=== PATIENT | female | born 1975 | race Caucasian/White ===

== ENCOUNTER → 2017-12-25 10:22 | Outpatient (CLI) | payer BC, SELFPAY ==
[2017-12-26 10:39] LABS: HIV - WCH Non-Reactive (Nonreactive)
[2017-12-28 07:07] LABS: Hep B Surface Antibodies Non Reactive (.); Hep C Antibodies <0.1 s/co ratio (0.0-0.9)
== END ==
LOC: LAB 10:23
PROVIDERS: Family Provider Family Medicine; PCP Family Medicine; Visit Provider Physician Assistant Surgical
DX: S41.152A Open bite of left upper arm, initial encounter (principal)
CPT/HCPCS: 36415; 86703; 86706; 86803

== ENCOUNTER → 2018-02-05 12:03 | Outpatient (CLI) | payer OTHER, BC, SELFPAY ==
[2018-02-05 14:28] LABS: Alanine Aminotransfer ALT/SGPT 29 U/L (13-56)
[2018-02-06 10:57] LABS: HIV - WCH Non-Reactive (Nonreactive)
[2018-02-06 11:40] LABS: Hep C Antibodies <0.1 s/co ratio (0.0-0.9)
== END ==
PROVIDERS: Family Provider Family Medicine; PCP Family Medicine; Visit Provider Physician Assistant Surgical
DX: T14.8XXA Other injury of unspecified body region, initial encounter (principal); W50.3XXA Accidental bite by another person, initial encounter; Y93.9 Activity, unspecified; Y92.9 Unspecified place or not applicable; Y99.0 Civilian activity done for income or pay
CPT/HCPCS: 36415; 84460; 86703; 86803

== ENCOUNTER 2019-10-15 13:36 | Emergency (ER) | payer SELFPAY ==
[2019-10-15 13:39] VITALS: BP 151/92; PULSE 125; RESP 20; TEMP 36.2; O2SAT 97; BMI 56.8
--- NOTE | 2019-10-15 13:53 | ED.DCSUM_ITS ---
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 She began Tamiflu on Sunday and called her doctor with nausea on Sunday and was given some Zofran. When she woke today she had a right lower quadrant abdominal pain. Nonradiating. Worse with movement and touch. She had 2 bowel movements which were normal. She notes normal urination. She has been drinking water but not eating because of the nausea. No reported fevers. She states her only surgical history is a tonsillectomy. Past Medical History - Allergies and Home Meds Allergies/Adverse Reactions: Allergies aspirin Allergy (Severe, Verified 10/15/19 13:37) Unknown Primary Care Physician: Luca Flores MD [Primary Care Provider] - 1 Day for another exam Smoking Status: Never smoker Review of Systems General: Denies: Chills, Fever, Sweats Eyes: Denies: Visual changes - bilaterally, Diplopia ENT: Denies: Rhinorrhea, Sore throat Cardiovascular: Denies: Chest pain, Palpitations Respiratory: Denies: Dyspnea, Cough, Dyspnea on exertion Gastrointestinal: Reports: Abdominal pain, Nausea. Denies: Vomiting, Diarrhea, Melena, Hematochezia Genitourinary: Denies: Dysuria, Hematuria, Frequency Musculoskeletal: Denies: Back pain, Extremity Pain Skin: Denies: Rash, Wounds Neurological: Denies: Headache, Weakness, Numbness Physical Exam Vital Signs/Narrative: Vital Signs Temp Pulse Resp BP Pulse Ox 10/15/19 13:39 97.1 F L 125 H 20 H 151/92 H 97 Inital Vital Signs reviewed: Yes General: Well nourished, Well developed, No Acute Distress Head: Normocephalic, Atraumatic Eyes: Perrl, EOMI ENT: Moist mucous membranes, No rhinorrhea Neck: Supple, Nontender Cardiovascular: Regular rate, Regular rhythm, No murmurs Respiratory: No distress, CTA bilaterally, Chest nontender Abdomen: Soft, Nondistended, Normal bowel sounds, Tender, - - Patient does report tenderness however due to body habitus I do not feel that I can perform an adequate abdominal examination. Back: Nontender, Normal Inspection Extremities: Nontender, No edema Skin: Normal color, No rash Neurological: Alert, Oriented x3, Cranial nerves II-XII grossly intact, Normal Strength, Normal Sensation Psychological: Normal affect, Normal Mood Diagnostic/Tx/Re-eval - Medical Decision Making The patient's white count is 6.9. Urinalysis does have 2+ bacteria but no significant white or red cells. Negative nitrates. CT the abdomen and pelvis were obtained and this was negative for appendicitis. No obvious stones were seen. I do not have an etiology for the patient's pain on her right side. She plans on stopping the Tamiflu. I will write for Zofran. I have asked that if she continues to have this abdominal pain past the next 24 hours she should have a repeat examination either by us or her primary care physician. She can always return earlier if worsening. She is comfortable with this plan. ED Disposition - Plan for ED Patient: Disposition: Home or Assisted Living Diagnosis: Abdominal pain Instructions: ED Abdominal Pain Unkn Cause Fem Prescriptions: Ondansetron [Zofran Odt] 4 mg PO Q6H PRN PRN #20 tab PRN Reason: Nausea Transmission Status: Pending to [id number] Referrals: Luca Flores MD [Primary Care Provider] - 1 Day for another exam
--- NOTE | 2019-10-15 13:53 | CT_ITS ---
STUDY: CT ABDOMEN AND PELVIS WITH CONTRAST REASON FOR EXAM: Female, 44 years old. Abdomen pain RLQ, nausea, vomiting, hx asthma, kidney stones, hypertension. RADIATION DOSAGE (If Supplied By Facility): CTDIvol = ( 35.60 ) mGy, DLP = ( 4008.85 ) mGycm TECHNIQUE: Transaxial images were obtained from the dome of the diaphragm to the symphysis pubis without oral contrast. IV 100mL Isovue-300 was administered. Sagittal and coronal images were reconstructed. Individualized dose optimization techniques were used for this CT. COMPARISON: Comparison is made with prior study dated June 22, 2010. FINDINGS: Patchy bibasilar infiltrates more prominent on the right side. The visualized portions of the heart are within normal limits. Normal liver. Stable 5 mm focal calcification is once again seen adjacent to the medial aspect of the right lobe of the liver. There are multiple gallstones. Normal spleen. Normal pancreas. There is a small, circumscribed, smooth, low attenuation right adrenal mass, consistent with an adrenal adenoma. This measures 4.1 cm x 3.7 cm. Normal left adrenal gland. Small bilateral parapelvic cysts.. There is a retroaortic left renal vein. There is a small hiatal hernia. Normal small intestine. Normal colon. The appendix is visualized and appears normal. Normal abdominal aorta. Normal inferior vena cava. There is borderline retroperitoneal lymphadenopathy with enlarged nodes no greater than 10mm in the short axis diameter. Normal urinary bladder. There is a 6.7 cm x 8.5 cm x 7.1 cm inhomogeneous mass overlying the fundal portion of the uterus. This may represent a large fibroid. Correlation with ultrasound of the pelvis is recommended for further evaluation. There is a small umbilical hernia containing fat. There are degenerative changes of the visualized lumbar spine. CT/Abdomen/Pelvis W IV Cont ONLY IMPRESSION: Patchy bibasilar infiltrates worse on the left side. Gallstones. 6.7 cm x 8.57 x 7.1 cm inhomogeneous mass overlying the fundal portion of the uterus. This may represent uterine fibroid. Correlation with a pelvic sonogram is recommended. 4.1 cm x 3.7 cm hypodense nodule in the right adrenal gland suggestive of an adenoma. Electronically Signed: Nathan Manriquez, at 15:50 EDT , Service support ,
[2019-10-15 14:23] LABS: Absolute Lymphocyte Count 1.06 X10^3/uL (0.83-4.51); Absolute Neutrophil Count 5.4 X10^3/uL (2.0-7.7); Hematocrit 40.1 % (37-47); Hemoglobin 12.6 g/dL (12.0-15.0); Lymphocyte # 1.06 X10^3/ul (4.0); Lymphocyte % 15.4 % (19-41); Mean Corp Hgb Conc 31.4 g/dL (32-36); Mean Corpuscular Hgb 28.6 pg (27.0-32.0); Mean Corpuscular Volume 90.9 fL (81-99); Monocyte# 0.45 X10^3/uL; Monocyte% 6.5 % (0-10); NRBC Flagged by Analyzer 0 % (0-5); Neutrophil # 5.35 X10^3/uL (2.7-7.7); Neutrophil % 77.8 % (47-70); Platelet Count 168 K/mm3 (150-450); RBC Distribution Width CV 14.5 % (11.6-14.6); RBC Distribution Width SD 48.7 fl (35.1-43.9); Red Blood Count 4.41 M/mm3 (4.2-5.4); White Blood Count 6.9 K/mm3 (4.4-11.0)
[2019-10-15 14:37] LABS: ALB/GLOB Ratio 0.8 RATIO (0.9-2.4); AST(SGOT) 82 U/L (15-37); Alanine Aminotransfer ALT/SGPT 88 U/L (13-56); Albumin, Serum 3.3 g/dL (3.2-5.0); Alkaline Phosphatase 70 U/L (45-117); Anion Gap 10 (5-15); BUN 9 mg/dL (7-18); BUN/Creat Ratio 12.3 RATIO (10-20); Chloride 107 mmol/L (98-107); Creatinine, Serum 0.73 mg/dL (0.55-1.02); EST Glomerular Filtration Rate 92 mL/min (>60); Est Glom Filt Rate - Afr Amer 111 mL/min (>60); Estimated Creatinine Clearance 99.21 ml/min; Globulin 4.2 g/dL (2.2-4.2); Glucose 98 mg/dL (74-106); Lipase 73 U/L (73-393); Potassium 4.1 mmol/L (3.5-5.1); Protein, Total 7.5 g/dL (6.4-8.2); Sodium Level 142 mmol/L (136-145)
[2019-10-15] MEDS: Ondansetron 4 MG/2 ML Vial IV (14:41)
[2019-10-15 15:12] LABS: Mucous, Urine 0 SEEN /hpf (<or=2+); Red Blood Cells-Urine 0 SEEN /hpf (0-5); White Blood Cells 0 SEEN /hpf (0-5)
[2019-10-15 15:14] LABS: Color, Urine Yellow (Yellow); Glucose, Dipstick Normal (Normal); Ketone-Dipstick 50 mg/dl (Negative); Leukocyte Esterase-Dipstick 25 /ul (Negative); Nitrite-Dipstick Negative (Negative); Occult Blood-Urine Negative /ul (Negative); Protein-Dipstick 15 mg/dl (Negative); Specific Gravity, Urine 1.015 (1.002-1.030); Urine Bilirubin Dipstick Negative (Negative); Urine Clarity Clear (Clear); Urine Urobilinogen 1 mg/dl (Normal)
[2019-10-15 15:19] LABS: Internal QC Validated? YES +Cl - CLEAR BKGD; Pregnancy, Urine Negative Negative
[2019-10-15 15:23] LABS: Bacteria 2+ /hpf (None Seen); Squamous Epithelial Cells - UA 0-5 SEEN /hpf (5-10)
[2019-10-15 16:18] VITALS: BP 120/71; PULSE 113; RESP 19; O2SAT 92
== END 2019-10-15 16:19 | disposition home or self-care (01) ==
PROVIDERS: Emergency Provider Emergency Medicine; PCP Family Medicine
DX: R10.31 Right lower quadrant pain (principal)
CPT/HCPCS: 74177; 80053; 81001; 81025; 83690; 85025; 96374; 99283; Q9967; A4216; J2405

== ENCOUNTER 2020-04-10 07:41 | Inpatient (IN) | payer MEDICAID, SELFPAY ==
[2020-04-10] VITALS (23 sets, daily range): BP systolic 123–167; BP diastolic 68–108; PULSE 74–126; RESP 18–26; TEMP 35.7–36.9; O2SAT 89–93; BMI 56.8; BMI 58.4; BMI 58.5
--- NOTE | 2020-04-10 07:58 | EKG12_ITS ---
Test Reason : SOB Blood Pressure : / mmHG Vent. Rate : 116 BPM Atrial Rate : 116 BPM P-R Int : 124 ms QRS Dur : 090 ms QT Int : 318 ms P-R-T Axes : 034 012 019 degrees QTc Int : 442 ms Sinus tachycardia Low voltage QRS Inferior infarct , age undetermined Abnormal ECG Confirmed by TATO BROWN, LORI ([id number]), scientific publications editor ISI STEPHENSON ([id number]) on 04/15/2020 1:45:15 PM Referred By: CLAYTON Confirmed By:SARAH GODWIN MD
--- NOTE | 2020-04-10 08:00 | ED.DCSUM_ITS ---
- ER Visit Summary Date of Service: 04/10/20 Chief Complaint: [Shortness of breath] History of Present Illness: The patient is a 44 F [presents the emergency room shortness of breath for last 2 days. Patient believes it is due to her asthma. Patient has been using her inhaler and getting some mild relief with that. She denies any chest pain. She denies fever. 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 Patient denies recent travel or surgery. No history of PE or DVT. She does not wear home O2. Patient has history of hypertension, high cholesterol, asthma, hypothyroidism, and GERD.] Physical Examination: [HEENT-PERRLA, EOMI. Cranial nerves II through XII grossly intact. TMs clear. Mucous membranes moist. No adenopathy. Cardiovascular-regular and tachycardic without murmur or ectopy Lungs-good aeration bilaterally. Patient does have some diminished breath sounds especially in the right lower lobe. She has some faint expiratory wheezes noted. Mild tachypnea. No accessory muscle use or retractions. Abdomen-normoactive bowel sounds, soft, nontender, no rebound or rigidity, no peritoneal signs. Extremities-intact ?4, normal range of motion, normal pulses, atraumatic] Test Results: [EKG obtained arrival showed a sinus tachycardia with a ventricular rate of 116 bpm with old inferior infarct noted. CBC with [facility] tial showed a white count 21.6, hemoglobin 9.8, hematocrit 33, placed 304. Chemistries unremarkable. Troponin less than 0.015. BNP was 94. Lactate was 1.1. D-dimer was elevated at greater than 20. Chest x-ray obtained on arrival showed a right-sided effusion with right-sided infiltrates. CTA of the chest obtained was limited due to suboptimal enhancement. There was no's demonstrated central pulmonary embolism. Suboptimal evaluation of the peripheral branches. Patient was noted to have right upper lobe and lower lobe infiltrates likely due to pneumonia. Patient also had moderate right pleural effusion and trace left pleural effusion.] Emergency Department Course and Treatment: [IV line established on arrival. Patient was placed on oxygen. Patient treated with albuterol and Atrovent. Patient started on Levaquin 750 mg IV. Blood cultures ordered and pending.] Treatment Plan: [Admit] Disposition: [Admit] Impression: [Pneumonia Hypoxemia Right pleural effusion Sepsis] This note was generated with [employer] dictation software. It may contain incorrect words, spelling, and punctuation that were not noted in review of the chart prior to signing ED Disposition - Plan for ED Patient: Referrals: Luca Flores MD [Primary Care Provider] -
--- NOTE | 2020-04-10 08:02 | NURSING ---
NO OLD EKGS
--- NOTE | 2020-04-10 08:35 | RAD_ITS ---
STUDY: X-RAY CHEST REASON FOR EXAM: Female, 44 years old. Asthma, shortness of breath. TECHNIQUE: Single AP portable view of the chest. COMPARISON: Prior comparison studies are not available for review at this time. FINDINGS: Moderate right pleural effusion. Probable underlying infiltrate right midlung zone. Opacity in right upper lobe could represent fluid in the minor fissure. The cardiac silhouette is mildly enlarged. Normal mediastinum and pepper. Normal visualized pulmonary arteries. Normal visualized aortic arch and descending thoracic aorta. Normal visualized thoracic spine. Normal visualized ribs, clavicles, and shoulders. There is no demonstrated abnormality of the visualized soft tissue structures of the upper abdomen. RAD/Chest 1 View (Portable) IMPRESSION: Moderate right pleural effusion with probable underlying infiltrate. Electronically Signed: Ulises Rodrigez MD at 8:50 EDT Tel , Service support ,
[2020-04-10] MEDS: Albuterol 2.5 MG/3 ML VIAL.NEB. INHALATION ×3 (08:40→09:15)
[2020-04-10] MEDS: MethylPREDNISolone 125 MG/2 ML Vial IV (08:43)
[2020-04-10 08:47] LABS: Absolute Lymphocyte Count 1.61 X10^3/uL (0.83-4.51); Absolute Neutrophil Count 18.1 X10^3/uL (2.0-7.7); Basophil# 0.05 X10^3/uL; Basophil% 0.2 % (0-1); Eosinophils% 0.9 % (0-5); Hematocrit 33.1 % (37-47); Hemoglobin 9.8 g/dL (12.0-15.0); Lymphocyte # 1.61 X10^3/ul (4.0); Lymphocyte % 7.4 % (19-41); Mean Corp Hgb Conc 29.6 g/dL (32-36); Mean Corpuscular Hgb 27.2 pg (27.0-32.0); Mean Corpuscular Volume 91.9 fL (81-99); Mean Platelet Vol. 11.7 fl (6.2-12.0); Monocyte# 1.51 X10^3/uL; NRBC Flagged by Analyzer 0 % (0-5); Neutrophil # 18.09 X10^3/uL (2.7-7.7); Neutrophil % 83.7 % (47-70); POSITIVE DIFFERENTIAL YES; Platelet Count 304 K/mm3 (150-450); RBC Distribution Width CV 16.8 % (11.6-14.6); RBC Distribution Width SD 55.5 fl (35.1-43.9); White Blood Count 21.6 K/mm3 (4.4-11.0)
[2020-04-10 08:48] LABS: Differential Indicated SCAN CRITERIA MET
[2020-04-10 09:00] LABS: Anion Gap 5 (5-15); BUN 12 mg/dL (7-18); Calcium,Total 9.2 mg/dL (8.5-10.1); Chloride 106 mmol/L (98-107); Creatinine, Serum 0.57 mg/dL (0.55-1.02); EST Glomerular Filtration Rate 122 mL/min (>60); Est Glom Filt Rate - Afr Amer 147 mL/min (>60); Estimated Creatinine Clearance 131.63 ml/min; Glucose 102 mg/dL (74-106); Sodium Level 139 mmol/L (136-145)
[2020-04-10] MEDS: levoFLOXacin IV 750 MG/150 ML BAG 100 MG IV (09:00)
[2020-04-10 09:10] LABS: Differential Comment SCANNED; Hypochromasia 2+; Platelet Estimate ADEQUATE (ADEQ)
[2020-04-10 09:12] LABS: BNP,B-Type NATRIURETIC PEPTIDE 94.5 pg/mL (0-100)
[2020-04-10] MEDS: Ipratropium/Albuterol Sulfate 3 ML AMPUL.NEB INHALATION ×4 (09:14→23:10)
[2020-04-10 09:16] LABS: D-Dimer Quantitative (DVT/PE) > 20.00 FEU/ug/m (0.27-0.49)
--- NOTE | 2020-04-10 09:16 | CT_ITS ---
STUDY: CTA CHEST REASON FOR EXAM: Female, 44 years old. Increased SOB, tachycardia, asthma, hypertension. VERY LG PATIENT RADIATION DOSAGE (If Supplied By Facility): CTDIvol = ( 21.43 ) mGy, DLP = ( 813.61 ) mGycm TECHNIQUE: The examination was performed with the intravenous administration of IV 100mL Isovue-370. Post-processing of the angiographic images was performed, with multiplanar reformation and 3D reconstruction. Individualized dose optimization techniques were used for this CT. COMPARISON: None. FINDINGS: There is limited enhancement of the main pulmonary artery and right and left pulmonary arteries. There is limited enhancement of the bilateral peripheral pulmonary arteries. There is no demonstrated definite central pulmonary embolism. Suboptimal evaluation of the peripheral branches. Normal thoracic aorta and visualized great vessels. There is no demonstrated aortic dissection. Normal heart and pericardium. No evidence of hilar or mediastinal adenopathy. Enlargement of the thyroid gland extending the thoracic inlet with small nodules. Normal hilar regions. Normal visualized trachea and bronchi. The lungs are under expanded. Right upper lobe infiltrate likely due to pneumonia. Infiltrate in the superior segment of the right lower lobe. Moderate right pleural effusion. Trace of left pleural effusion. Normal chest wall structures. The osseous structures and straight mild increased kyphosis and mild degenerative changes. The visualized upper abdomen demonstrate 3.4 cm mass in the right adrenal gland consistent with adenoma unchanged since prior examination from 2009. CT/CTA Chest W/WO Contrast IMPRESSION: 1. Limited examination due to suboptimal enhancement. 2. No demonstrated central pulmonary embolism. Suboptimal evaluation of the peripheral branches. 3. Right upper and lower lobes infiltrates likely due to pneumonia. 4. Moderate right pleural effusion and trace of left pleural effusion.. 5. Right adrenal adenoma. Electronically Signed: Ulises Rodrigez MD at 10:03 EDT Tel , Service support ,
[2020-04-10 09:19] LABS: Lactic Acid 1.1 mmol/L (0.4-1.9)
--- NOTE | 2020-04-10 10:08 | NURSING ---
DR DONNELL MCCURDY
--- NOTE | 2020-04-10 10:08 | PCM.HP.STD ---
Problem List (1) Asthma exacerbation Status: Acute (2) Pneumonia involving right lung Status: Acute (3) Right moderate large pleural effusion Status: Acute (4) Hypertension Status: Chronic (5) Dyslipidemia Status: Chronic (6) Morbid obesity Status: Chronic (7) Anxiety and depression Status: Chronic (8) Hypothyroidism Status: Chronic History of Present Illness Date of Admission: 04/10/20 Chief Complaint: Cough, shortness of breath and sputum for 3 days The patient is a 44 year old F with history of asthma and morbid obesity came to ER with shortness of breath, cough with productive sputum for 3 days. 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 She stated she has been tested multiple times for COVID-19, last time was 3 days ago and all were negative. She has history of asthma and gets mild flareup in fall season but has not been admitted for asthma exacerbation for last 5 years. She is morbidly obese, BMI 56.9 and get short of breath normally on moderate exertion for walking but for last 3 days she is short of breath even walking few steps within room. Denies fever or chills. Patient does not know about characteristics of his sputum but denies hemoptysis. In ER, triage vitals heart rate 125, blood pressure 158/92 respiratory rate 22 pulse ox 92% on 3 L of oxygen. Basic blood work in ER shows leukocytosis 21.6 thousand with neutrophil 83%, lymphocytes 10.4%. BNP 94 troponin negative, BMP within normal limit. She had chest x-ray and CTPA chest which showed no central pulmonary embolism, right arm and upper lobar infiltrates, consolidation and moderate right pleural effusion with trace left pleural effusion. EKG sinus tachycardia at 116 bpm. QTC 442 ms. Patient was given IV Solu-Medrol, Levaquin, DuoNeb and was admitted. Past Medical History Past Medical History (Chronic Problems): Chronic Problems (Last Reviewed 11/19/17 @ 10:37 by Savannah Carmen) Hypertension (Chronic) Dyslipidemia (Chronic) Morbid obesity (Chronic) Anxiety and depression (Chronic) Hypothyroidism (Chronic) Medical History: Medical History (Last Reviewed 11/19/17 @ 10:37 by Savannah Carmen) Arthritis M19.90 Asthma J45.909 Hypertension I10 Allergies aspirin Allergy (Severe, Verified 04/10/20 07:47) Unknown Home Medications: Ambulatory Orders Medication Instructions Recorded escitalopram oxalate 20 mg tablet 20 mg PO DAILY 30 Days #30 09/25/17 lisinopril 20 mg tablet 20 mg PO DAILY 30 Days #30 09/25/17 montelukast 10 mg tablet 10 mg PO QHS 09/25/17 omeprazole 20 mg capsule,delayed 20 mg PO DAILY 30 Days #30 09/25/17 release pravastatin 20 mg tablet 20 mg PO DAILY 30 Days #30 09/25/17 Bupropion HCl [Bupropion Xl] 150 mg PO DAILY 10/15/19 Levothyroxine [Synthroid] 50 mcg PO DAILY 10/15/19 Albuterol Sulfate [Albuterol 2 puff IH Q4H PRN PRN 04/10/20 Sulfate HFA] Fluticasone Propionate [Flovent 2 puff IH DAILY 04/10/20 Hfa] Smoking Status: Never smoker Tobacco Use: Non-smoker Alcohol: None Drugs: None - *Family History Paternal History Items: COPD - Father history of COPD and smoking Review of Systems Constitutional: Reports: Malaise, Weakness, Fatigue. Denies: Chills, Fever, Weight Change HEENT: Denies: Head Aches, Sinus Congestion, Sinus Drainage Cardiovascular: Denies: Chest Pain, Palpitations Respiratory: Reports: Cough, Shortness of Breath, Shortness of breath at rest, Shortness of breath upon exertion, Sputum production, Wheezing. Denies: Hemoptysis Gastrointestinal: Denies: Abdominal Pain, Constipation, Diarrhea, Hematemesis, Hematochezia, Nausea, Melena, Vomiting Genitourinary: Denies: Dysuria, Frequency, Hesitancy, Incontinence, Retention, Urgency Musculoskeletal: Denies: Joint Pain, Joint Tenderness Skin: Denies: Rash, Wounds Neurological: Denies: Focal weakness, Numbness, Tingling Psychiatric: Denies: Anxiety, Depression, Homicidal Ideations, Suicidal Ideations Hematologic/ Lymphatic: Denies: Easy Bruising, Easy Bleeding VTE Information - Inpt Only VTE Present on Admission: No VTE Mechan Device Prophylaxis: None VTE Pharm Prophylaxis ordered?: Yes Patient Problems: Active and Suspected Problems (Last Reviewed 11/19/17 @ 10:37 by Savannah Carmen) Asthma exacerbation (Acute) Pneumonia involving right lung (Acute) Right moderate large pleural effusion (Acute) - Physical Exam Vitals/I&O's: Vital Signs Temp Pulse Resp BP Pulse Ox 98.1 F 125 H 22 H 158/92 H 92 04/10/20 09:42 04/10/20 09:42 04/10/20 09:44 04/10/20 09:42 04/10/20 09:42 Oxygen Flow Rate (L/min) 3 Oxygen Delivery Method Nasal Cannula Weight: 385 lb Body Mass Index (BMI) 56.8 General: Alert, Oriented x3, Cooperative HEENT: Atraumatic, PERRLA, EOMI, Normocephalic Oral: No Gingival or Mucosal Lesions/ Ulcerations, Dry Mucosa Neck: Supple, No JVD, Negative Carotid Bruits Lungs: Diminished - Air entry severely diminished lower half of right lung. Mild expiratory wheezing present. Stony dullness in the right posterior half consistent with pleural effusion. Mild tachypnea and hypoxia Cardiovascular: Regular rate, Regular Rhythm, Normal S1, Normal S2, No murmurs Abdomen: Bowel Sounds Present, Soft, Non Tender, Non-Distended, - - : No dysuria or new lower urinary tract symptoms. No suprapubic or renal angle tenderness. Urine output adequate. Extremities: No edema, Capillary Refill Less than 3 Seconds Skin: No rashes, No breakdown Musculoskeletal: No Tenderness to Palpation of Joints or Extremities, Arthritic Changes Neurological: Cranial nerves II-XII grossly intact, Deep Tendon Reflexes 2+/4 and Symmetrical, Neuro grossly intact, Motor Exam 5/5 strength throughout Psych/Mental Status: Normal Affect, Appropriate Laboratory Results 04/10/20 08:30: WBC 21.6 H, RBC 3.60 L, Hgb 9.8 L, Hct 33.1 L, MCV 91.9, MCH 27.2, MCHC 29.6 L, RDW Std Deviation 55.5 H, RDW Coeff of Ana M 16.8 H, Plt Count 304, MPV 11.7, Immature Gran % (Auto) 0.800, Neut % (Auto) 83.7 H, Lymph % (Auto) 7.4 L, Menard % (Auto) 7.0, Eos % (Auto) 0.9, Baso % (Auto) 0.2, Absolute Neuts (auto) 18.1 H, Absolute Lymphs (auto) 1.61, Nucleated RBC % 0, Differential Comment SCANNED, Diff Path Review May foll, Platelet Estimate ADEQUATE, Hypochromasia 2+ 09/26/20 08:30: D-Dimer Quant (PE/DVT) > 20.00 H* 04/10/20 08:30: Sodium 139, Potassium 4.0, Chloride 106, Carbon Dioxide 28.0, Anion Gap 5, BUN 12, Creatinine 0.57, Estim Creat Clear Calc 131.63, Est GFR (MDRD) Af Amer 147, Est GFR (MDRD) Non-Af 122, BUN/Creatinine Ratio 21.0 H, Glucose 102, Calcium 9.2, Troponin I < 0.015 04/10/20 08:30: B-Natriuretic Peptide 94.5 04/10/20 08:30: Lactic Acid 1.1 Current Medications Levofloxacin (Levaquin Iv) 750 mg in 150 mls @ 100 mls/hr IV X1 ONE Stop: 04/10/20 10:09 Last Admin: 04/10/20 09:00 Dose: 100 mls/hr Documented by: Iopamidol (Contrast Allergy Check) 0 ml IV X1 CHAU Assessment/Plan All Active Problems (Last Reviewed 11/19/17 @ 10:37 by Savannah Carmen) Asthma exacerbation (Acute) Pneumonia involving right lung (Acute) Right moderate large pleural effusion (Acute) Arthritis of knee, left (Acute) URI, acute (Acute) The patient is a 44 year old F with history of asthma and morbid obesity came to ER with shortness of breath, cough with productive sputum for 3 days. Clinical and radiological findings are consistent with asthma exacerbation, right pleural effusion and pneumonia 1. Acute hypoxic respiratory insufficiency secondary to asthma exacerbation and right moderate to large pleural effusion and right lung multifocal pneumonia: Patient will be triaged depending upon COVID-19 PCR test which is pending. Chest CT individually reviewed and agree with moderate to large pleural effusion and upper and lower focal consolidation with atelectasis. On DuoNeb every 4 hourly, albuterol PRN, Rocephin, Zithromax, IV Solu-Medrol, incentive spirometry and pep. Mucinex 1200 mg twice daily. Pulmonary consult requested for pleural effusion which most probably need thoracocentesis. Ultrasound-guided thoracocentesis ordered for Sunday. 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 2. Asthma exacerbation most likely secondary to pneumonia with right moderate to large pleural effusion: As mentioned above 3. Morbid obesity: Patient has BMI 56.9 kg/m? with 385 pounds weight. Advised weight loss counseling, nutrition consult and exercise. 4. Hypertension: On lisinopril 20 mg daily. IV enalapril if systolic blood pressure more than 170 MNG Other comorbidities include hypothyroidism, GERD,, anxiety and depression: Home medication reconciliation done. Patient on bupropion, Flovent, Lexapro, lisinopril, montelukast, pravastatin and levothyroxine. Lexapro held due to drug drug interaction with Zithromax. VTE prophylaxis: Moderate risk. On Lovenox 40 mg subcu daily Clinical Impression(s) from Imaging Studies Chest X-Ray 04/10/20 08:35 IMPRESSION: Moderate right pleural effusion with probable underlying infiltrate. Chest CTA 04/10/20 09:16 IMPRESSION: 1. Limited examination due to suboptimal enhancement. 2. No demonstrated central pulmonary embolism. Suboptimal evaluation of the peripheral branches. 3. Right upper and lower lobes infiltrates likely due to pneumonia. 4. Moderate right pleural effusion and trace of left pleural effusion.. 5. Right adrenal adenoma. Inpatient E&M: 15926 Init Hosp L3
--- NOTE | 2020-04-10 10:16 | NURSING ---
PCU DONNELL PNEUMONIA, SEPSIS, HYPOXIA
[2020-04-10 12:27] LABS: Probe Check PASS; Specimen Processing Control PASS
[2020-04-10] MEDS: 0.9% Normal Saline 1,000 ML 30 ML IV (13:28)
[2020-04-10 13:46] LABS: Lactic Acid 1.3 mmol/L (0.4-1.9)
[2020-04-10 15:32] LABS: M R Staph aureus DNA By PCR Negative (Negative); Probe Check PASS; Specimen Processing Control PASS
[2020-04-10] MEDS: 0.9% Saline Lock 10 ML Syringe IV ×2 (18:39→22:03)
[2020-04-10] MEDS: Enoxaparin 40 MG/0.4 ML Syringe SC (18:39)
[2020-04-10] MEDS: guaiFENesin 1,200 MG Tablet 1200 MG PO (22:02)
[2020-04-10] MEDS: Pravastatin 20 MG Tablet PO (22:02)
[2020-04-10] MEDS: Montelukast 10 MG Tablet PO (22:02)
[2020-04-11] VITALS (23 sets, daily range): BP systolic 119–147; BP diastolic 58–96; PULSE 101–122; RESP 18–24; TEMP 36.2–36.5; O2SAT 91–94
[2020-04-11] MEDS: Ipratropium/Albuterol Sulfate 3 ML AMPUL.NEB INHALATION ×6 (03:10→23:02)
[2020-04-11 06:05] LABS: Absolute Lymphocyte Count 1.48 X10^3/uL (0.83-4.51); Absolute Neutrophil Count 27.6 X10^3/uL (2.0-7.7); Basophil# 0.06 X10^3/uL; Basophil% 0.2 % (0-1); Hematocrit 34.3 % (37-47); Lymphocyte # 1.48 X10^3/ul (4.0); Lymphocyte % 4.8 % (19-41); Mean Corp Hgb Conc 29.2 g/dL (32-36); Mean Corpuscular Hgb 27.6 pg (27.0-32.0); Mean Corpuscular Volume 94.8 fL (81-99); Mean Platelet Vol. 11.4 fl (6.2-12.0); Monocyte# 1.48 X10^3/uL; Monocyte% 4.8 % (0-10); NRBC Flagged by Analyzer 0 % (0-5); Neutrophil # 27.57 X10^3/uL (2.7-7.7); Neutrophil % 88.4 % (47-70); POSITIVE COUNT YES; POSITIVE DIFFERENTIAL YES; Platelet Count 323 K/mm3 (150-450); RBC Distribution Width CV 17.1 % (11.6-14.6); RBC Distribution Width SD 58.4 fl (35.1-43.9); Red Blood Count 3.62 M/mm3 (4.2-5.4)
[2020-04-11 06:08] LABS: Differential Indicated SCAN CRITERIA MET; White Blood Count 31.1 K/mm3 (4.4-11.0)
[2020-04-11] MEDS: Levothyroxine 50 MCG Tablet PO (06:10)
[2020-04-11 06:30] LABS: AST(SGOT) 30 U/L (15-37); Alanine Aminotransfer ALT/SGPT 19 U/L (13-56); Albumin, Serum 3.1 g/dL (3.2-5.0); Alkaline Phosphatase 90 U/L (45-117); Anion Gap 4 (5-15); BUN 20 mg/dL (7-18); BUN/Creat Ratio 25.6 RATIO (10-20); Bilirubin, Direct 0.17 mg/dL (0.00-0.30); Calcium,Total 9.3 mg/dL (8.5-10.1); Chloride 106 mmol/L (98-107); Creatinine, Serum 0.78 mg/dL (0.55-1.02); EST Glomerular Filtration Rate 85 mL/min (>60); Est Glom Filt Rate - Afr Amer 103 mL/min (>60); Estimated Creatinine Clearance 96.19 ml/min; Globulin 4.6 g/dL (2.2-4.2); Glucose 151 mg/dL (74-106); Potassium 4.3 mmol/L (3.5-5.1); Protein, Total 7.7 g/dL (6.4-8.2); Sodium Level 138 mmol/L (136-145)
[2020-04-11 06:33] LABS: Differential Comment SCANNED
--- NOTE | 2020-04-11 06:44 | CON.PCM_ITS ---
Reason for Consult Date of Consultation: 04/11/20 Reason for Consultation: Pleural effusion History of Present Illness: The patient is a 44-year-old female, with a history as outlined below, who presented to the emergency department on April 10 with complaints of shortness of breath. The patient reported that she was initially diagnosed with asthma in childhood. She does not currently follow with a resource development manager. She is currently on Flovent and as needed albuterol as an outpatient. Over the last 2 to 3 days, she has noted increasing shortness of breath along with increased use of her rescue inhaler. Prior to this, the patient reported that her breathing quality was stable and she had not experienced any recent exacerbations. She denies any personal or family history of venous thromboembolic disease. The patient is active and mobile. 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 She is regularly tested for coronavirus as part of her employment. In fact, she was last tested 2 to 3 days ago and found to be negative. She is a lifelong non-smoker. On presentation to the emergency department, the patient was noted to be afebrile but was tachycardic and tachypneic. Laboratory evaluation revealed an elevated white blood cell count to 21,000. D-dimer was elevated to greater than 20. Chemistry profile was largely unrevealing. Lactate was within normal limits. BNP and troponin were within normal limits. Coronavirus PCR was negative. MRSA screen was negative. Although a CTA chest was obtained, there was suboptimal enhancement of the vascular structures. There was, nevertheless, evidence of a right lower lobe infiltrate and moderate-sized right-sided pleural effusion. The patient received supplemental IV fluids and was started on antimicrobials. She was subsequently admitted to the progressive care unit for further management. Past Medical History Past Medical History (Chronic Problems): Chronic Problems (Last Reviewed 11/19/17 @ 10:37 by Savannah Carmen) Hypertension (Chronic) Dyslipidemia (Chronic) Morbid obesity (Chronic) Anxiety and depression (Chronic) Hypothyroidism (Chronic) Medical History: Medical History (Last Reviewed 11/19/17 @ 10:37 by Savannah Carmen) Arthritis M19.90 Asthma J45.909 Hypertension I10 Allergies aspirin Allergy (Severe, Verified 04/10/20 07:47) Unknown Home Medications: Ambulatory Orders Medication Instructions Recorded escitalopram oxalate 20 mg tablet 20 mg PO QHS 30 Days #30 09/25/17 lisinopril 20 mg tablet 20 mg PO DAILY 30 Days #30 09/25/17 montelukast 10 mg tablet 10 mg PO QHS PRN 09/25/17 omeprazole 20 mg capsule,delayed 20 mg PO QHS 30 Days #30 09/25/17 release pravastatin 20 mg tablet 20 mg PO DAILY 30 Days #30 09/25/17 Bupropion HCl [Bupropion Xl] 150 mg PO DAILY 10/15/19 Levothyroxine [Synthroid] 50 mcg PO DAILY 10/15/19 Albuterol Sulfate [Albuterol 2 puff IH Q4H PRN PRN 04/10/20 Sulfate HFA] Fluticasone Propionate [Flovent 2 puff IH BID 04/10/20 Hfa] Smoking Status: Never smoker Tobacco Use: Non-smoker Alcohol: None Drugs: None - *Family History Paternal History Items: COPD - Father history of COPD and smoking Review of Systems Constitutional: Denies: Chills, Fever Eyes: Denies: Blurred vision, Double vision HEENT: Denies: Head Aches, Sinus Congestion, Sinus Drainage Cardiovascular: Denies: Chest Pain, Palpitations Respiratory: Reports: Cough, Shortness of Breath, Wheezing Gastrointestinal: Denies: Abdominal Pain, Nausea, Vomiting Genitourinary: Denies: Dysuria Musculoskeletal: Denies: Joint Pain, Joint Tenderness Skin: Denies: Rash, Wounds Neurological: Denies: Numbness, Tingling, Focal weakness Psychiatric: Denies: Anxiety, Depression, Homicidal Ideations, Suicidal Ideations Hematologic/ Lymphatic: Reports: Anemia. Denies: Hx of blood clot Patient Problems: Active and Suspected Problems (Last Reviewed 11/19/17 @ 10:37 by Savannah Carmen) Asthma exacerbation (Acute) Pneumonia involving right lung (Acute) Right moderate large pleural effusion (Acute) Objective: The patient's most recent lab work, culture data and imaging studies have all been personally reviewed. Strep and urine Legionella antigens were negative. Respiratory viral panel was negative. Blood cultures are pending. - Physical Exam Vitals/I&O's: Vital Signs Temp Pulse Resp BP Pulse Ox 97.6 F L 113 H 20 H 121/82 H 91 04/11/20 05:40 04/11/20 05:40 04/11/20 05:40 04/11/20 05:40 04/11/20 05:40 Oxygen Flow Rate (L/min) 6 Oxygen Delivery Method Nasal Cannula Weight: 393 lb 8.402 oz Body Mass Index (BMI) 58.4 Intake and Output for Last 24 Hours 04/09/20 04/10/20 04/11/20 23:59 23:59 23:59 Intake Total 830 / 830 Balance 830 / 830 General: Alert, Oriented x3, Cooperative, No apparent distress HEENT: Atraumatic, PERRLA, Normocephalic Oral: Moist Mucosa, No Gingival or Mucosal Lesions/ Ulcerations Neck: Supple, No Nodes, Trachea Midline, - - Large neck circumference with redundant soft tissue. Lungs: Diminished - R>L, Tachypneic, Wheezes Cardiovascular: Normal S1, Normal S2, No murmurs, Tachycardic Abdomen: Bowel Sounds Present, Soft, Non Tender, Obese Extremities: No clubbing, No cyanosis, No edema Skin: No breakdown Musculoskeletal: No Tenderness to Palpation of Joints or Extremities, No Muscle Wasting Lymphatic: No Cervical, Supraclavicular, or Inguinal Adenopathy Neurological: Cranial nerves II-XII grossly intact, Neuro grossly intact Psych/Mental Status: Alert and oriented to time, place, person, mood and affect Labs (Last 48 Hours) 04/10/20 04/10/20 04/10/20 08:30 08:30 08:30 WBC 21.6 H RBC 3.60 L Hgb 9.8 L Hct 33.1 L MCV 91.9 MCH 27.2 MCHC 29.6 L RDW Std Deviation 55.5 H RDW Coeff of Ana M 16.8 H Plt Count 304 MPV 11.7 Immature Gran % (Auto) 0.800 Neut % (Auto) 83.7 H Lymph % (Auto) 7.4 L [place] % (Auto) 7.0 Eos % (Auto) 0.9 Baso % (Auto) 0.2 Absolute Neuts (auto) 18.1 H Absolute Lymphs (auto) 1.61 Nucleated RBC % 0 Differential Comment SCANNED Diff Path Review May foll Platelet Estimate ADEQUATE Hypochromasia 2+ D-Dimer Quant (PE/DVT) > 20.00 H* Sodium 139 Potassium 4.0 Chloride 106 Carbon Dioxide 28.0 Anion Gap 5 BUN 12 Creatinine 0.57 Estim Creat Clear Calc 131.63 Est GFR (MDRD) Af Amer 147 Est GFR (MDRD) Non-Af 122 BUN/Creatinine Ratio 21.0 H Glucose 102 Lactic Acid Calcium 9.2 Magnesium Total Bilirubin Direct Bilirubin AST ALT Alkaline Phosphatase Troponin I < 0.015 B-Natriuretic Peptide Total Protein Albumin Globulin COVID-19 ([facility]) MRSA (PCR) 04/10/20 04/10/20 04/10/20 08:30 08:30 10:20 WBC RBC Hgb Hct MCV MCH MCHC RDW Std Deviation RDW Coeff of Ana M Plt Count MPV Immature Gran % (Auto) Neut % (Auto) Lymph % (Auto) [place] % (Auto) Eos % (Auto) Baso % (Auto) Absolute Neuts (auto) Absolute Lymphs (auto) Nucleated RBC % Differential Comment Diff Path Review Platelet Estimate Hypochromasia D-Dimer Quant (PE/DVT) Sodium Potassium Chloride Carbon Dioxide Anion Gap BUN Creatinine Estim Creat Clear Calc Est GFR (MDRD) Af Amer Est GFR (MDRD) Non-Af BUN/Creatinine Ratio Glucose Lactic Acid 1.1 Calcium Magnesium Total Bilirubin Direct Bilirubin AST ALT Alkaline Phosphatase Troponin I B-Natriuretic Peptide 94.5 Total Protein Albumin Globulin COVID-19 ([facility]) Negative MRSA (PCR) 04/10/20 04/10/20 04/10/20 13:15 13:15 13:15 WBC RBC Hgb Hct MCV MCH MCHC RDW Std Deviation RDW Coeff of Ana M Plt Count MPV Immature Gran % (Auto) Neut % (Auto) Lymph % (Auto) [place] % (Auto) Eos % (Auto) Baso % (Auto) Absolute Neuts (auto) Absolute Lymphs (auto) Nucleated RBC % Differential Comment Diff Path Review Platelet Estimate Hypochromasia D-Dimer Quant (PE/DVT) Sodium Potassium Chloride Carbon Dioxide Anion Gap BUN Creatinine Estim Creat Clear Calc Est GFR (MDRD) Af Amer Est GFR (MDRD) Non-Af BUN/Creatinine Ratio Glucose Lactic Acid 1.3 Calcium Magnesium 2.0 Total Bilirubin Direct Bilirubin AST ALT Alkaline Phosphatase Troponin I B-Natriuretic Peptide Total Protein Albumin Globulin COVID-19 ([facility]) MRSA (PCR) Negative 04/11/20 04/11/20 05:50 05:50 WBC 31.1 H* RBC 3.62 L Hgb 10.0 L Hct 34.3 L MCV 94.8 MCH 27.6 MCHC 29.2 L RDW Std Deviation 58.4 H RDW Coeff of Ana M 17.1 H Plt Count 323 MPV 11.4 Immature Gran % (Auto) 1.800 H Neut % (Auto) 88.4 H Lymph % (Auto) 4.8 L [place] % (Auto) 4.8 Eos % (Auto) 0.0 Baso % (Auto) 0.2 Absolute Neuts (auto) 27.6 H Absolute Lymphs (auto) 1.48 Nucleated RBC % 0 Differential Comment SCANNED Diff Path Review May foll Platelet Estimate Hypochromasia D-Dimer Quant (PE/DVT) Sodium 138 Potassium 4.3 Chloride 106 Carbon Dioxide 28.0 Anion Gap 4 L BUN 20 H Creatinine 0.78 Estim Creat Clear Calc 96.19 Est GFR (MDRD) Af Amer 103 Est GFR (MDRD) Non-Af 85 BUN/Creatinine Ratio 25.6 H Glucose 151 H Lactic Acid Calcium 9.3 Magnesium Total Bilirubin 0.50 Direct Bilirubin 0.17 AST 30 ALT 19 Alkaline Phosphatase 90 Troponin I B-Natriuretic Peptide Total Protein 7.7 Albumin 3.1 L Globulin 4.6 H COVID-19 ([facility]) MRSA (PCR) Microbiology 04/10/20 18:15 Urine, Clean Catch Legionella Antigen - Final 04/10/20 18:15 Urine, Clean Catch Streptococcus pneumoniae Antigen (M - Final 04/10/20 10:21 Mucosa - Nasopharyngeal Respiratory Panel (PCR) - Final Clinical Impression(s) from Imaging Studies Chest X-Ray 04/10/20 08:35 IMPRESSION: Moderate right pleural effusion with probable underlying infiltrate. Electronically Signed: Ulises Rodrigez MD at 8:50 EDT Tel , Service support , Chest CTA 04/10/20 09:16 IMPRESSION: 1. Limited examination due to suboptimal enhancement. 2. No demonstrated central pulmonary embolism. Suboptimal evaluation of the peripheral branches. 3. Right upper and lower lobes infiltrates likely due to pneumonia. 4. Moderate right pleural effusion and trace of left pleural effusion.. 5. Right adrenal adenoma. Electronically Signed: Ulises Rodrigez MD at 10:03 EDT Tel , Service support , Current Medications Acetaminophen (Tylenol) 650 mg PO Q6H PRN PRN PRN Reason: Pain Score 1-10/Temp > 100.7 F Al Hydroxide/Mg Hydroxide (Mylanta Ii) 30 ml PO Q6H PRN PRN PRN Reason: Gastric Burning Albuterol Sulfate (Ventolin Aerosols) 2.5 mg INHALATION Q2H PRN PRN PRN Reason: SOB/Wheezing Albuterol/Ipratropium (Duoneb) 3 ml INHALATION Q4H.RT [facility] Last Admin: 04/11/20 03:10 Dose: 3 ml Documented by: Bupropion HCl (Wellbutrin Xl) 150 mg PO DAILY [facility] Enoxaparin Sodium (Lovenox) 40 mg SC Q12 [facility] Last Admin: 04/10/20 18:56 Dose: Not Given Documented by: Guaifenesin (Mucinex) 1,200 mg PO BID [facility] Last Admin: 04/10/20 22:02 Dose: 1,200 mg Documented by: Sodium Chloride () 1,000 mls @ 30 mls/hr IV .[id number] [facility] Last Admin: 04/10/20 13:28 Dose: 30 mls/hr Documented by: Ceftriaxone Sodium 2 gm/ (Sodium Chloride) 50 mls @ 100 mls/hr IV Q24 [facility] Stop: 04/18/20 10:01 Azithromycin 500 mg/ Dextrose 255 mls @ 250 mls/hr IV Q24 [facility] Stop: 04/16/20 10:01 Influenza Virus Vaccine Quadrival (Flucelvax /Fluzone ) 0.5 ml IM .ONCE ONE Stop: 04/11/20 12:01 Iopamidol (Contrast Allergy Check) 0 ml IV X1 [facility] Last Admin: 04/10/20 13:28 Dose: Not Given Documented by: Levothyroxine Sodium (Synthroid) 50 mcg PO DAILY@0600 [facility] Last Admin: 04/11/20 06:10 Dose: 50 mcg Documented by: Lisinopril (Zestril) 20 mg PO DAILY [facility] Methylprednisolone (Solu-Medrol) 40 mg IV Q8 [facility] Last Admin: 04/11/20 06:10 Dose: 40 mg Documented by: Montelukast Sodium (Singulair) 10 mg PO QHS [facility] Last Admin: 04/10/20 22:02 Dose: 10 mg Documented by: Morphine Sulfate () 2 mg IV Q3H PRN PRN PRN Reason: Pain Score 6-10/10 Nitroglycerin (Nitrostat) 0.4 mg SUBLINGUAL Q5M PRN PRN Reason: CARDIAC/CHEST PAIN Oxycodone HCl (Oxyir) 5 mg PO Q4H PRN PRN PRN Reason: Pain Score 4-5/10 Pantoprazole Sodium (Protonix) 20 mg PO DAILY [facility] Polyethylene Glycol (Miralax) 17 gm PO DAILY [facility] Pravastatin Sodium (Pravachol) 20 mg PO QHS [facility] Last Admin: 04/10/20 22:02 Dose: 20 mg Documented by: Prochlorperazine Edisylate (Compazine Iv) 5 mg IV Q4H PRN PRN PRN Reason: Breakthrough Nausea/Vomiting Senna/Docusate Sodium (Senokot-S, Selene-Colace) 2 tablet PO BID PRN PRN PRN Reason: Constipation Sodium Chloride () 10 - 40 ml IV UD PRN PRN Reason: SALINE FLUSH Last Admin: 04/10/20 22:03 Dose: 10 ml Documented by: Assessment/Plan All Active Problems (Last Reviewed 11/19/17 @ 10:37 by Savannah Carmen) Asthma exacerbation (Acute) Pneumonia involving right lung (Acute) Right moderate large pleural effusion (Acute) Arthritis of knee, left (Acute) URI, acute (Acute) RECOMMENDATIONS: 1. Transition antimicrobials to Zosyn as monotherapy. 2. Obtain repeat CT chest given suboptimal evaluation for PE on admission. 3. Continue scheduled bronchodilators and IV steroids as ordered. 4. Wean supplemental oxygen to maintain saturations at or above 90%. 5. Encourage incentive spirometer use and mobilize patient as tolerated. 6. Plan for ultrasound-guided thoracentesis tomorrow. 7. Send pleural fluid studies for LDH, total protein, cell count, glucose, cultures, cytology. IMPRESSIONS: 1. Acute hypoxemic respiratory failure The patient does have a history of asthma, which is likely an exacerbation due to underlying pneumonia. The patient's pleural effusion may be parapneumonic in etiology. Nevertheless, the patient did present with tachycardia, tachypnea, hypoxemia and a significantly elevated d-dimer level. Initial evaluation for PE was suboptimal due to suboptimal opacification of the vascular structures on CTA chest. Therefore, I would recommend that the patient be reevaluated for the presence of PE. In the interim, the patient will be continued on broad-spectrum antimicrobials, along with bronchodilators and IV steroids. Continue to wean supplemental oxygen to maintain saturations at or above 90%. There are tentative plans for ultrasound-guided thoracentesis tomorrow. Send pleural fluid for studies including LDH, total protein, cell count, glucose, cultures, and cytology. 2. Morbid obesity/GERD/hypertension/hyperlipidemia/hypothyroidism Complicates care, management, recovery and prognosis. Continue home medications as indicated. This note was generated with [employer] dictation software. It may contain incorrect words, spelling, and punctuation that were not noted in checking the note before signing. Inpatient E&M: 25892 Init Hosp L3
--- NOTE | 2020-04-11 06:51 | CT_ITS ---
STUDY: CTA CHEST REASON FOR EXAM: Female, 44 years old. Increased SOB, tachycardia, elevated D-dimer, hypertension and asthma. RADIATION DOSAGE (If Supplied By Facility): CTDIvol = ( 34.96 ) mGy, DLP = ( 745.37 ) mGycm TECHNIQUE: The examination was performed with the intravenous administration of IV 100mL [id number]. Post-processing of the angiographic images was performed, with multiplanar reformation and 3D reconstruction. Individualized dose optimization techniques were used for this CT. COMPARISON: April 10, 2020. FINDINGS: Normal enhancement of the main pulmonary artery and right and left pulmonary arteries. There is limited enhancement of the bilateral peripheral pulmonary arteries. There is no demonstrated pulmonary embolism. Normal thoracic aorta and visualized great vessels. There is no demonstrated aortic dissection. Normal heart and pericardium. Normal mediastinum. Normal hilar regions. Normal visualized trachea and bronchi. The lungs are well expanded. There is right mid and lower lung airspace consolidation. There is left lower lung atelectasis. There is large right pleural effusion. There is small left pleural effusion. There are enlarged bilateral axillary lymph nodes. Thyroid gland is enlarged There are degenerative changes of thoracic spine. There is stable 3.6 cm right adrenal mass. There is hepatosplenomegaly. CT/CTA Chest W/WO Contrast IMPRESSION: CTA chest examination, without a demonstrated pulmonary embolism or arterial dissection. Right lung infiltrates. Right greater than left pleural effusions. Electronically Signed: Alvin Landers MD at 8:23 EDT , Service support ,
--- NOTE | 2020-04-11 08:08 | NURSING ---
[facility] delayed, pt off floor for test
[2020-04-11] MEDS: Pantoprazole Sodium 20 MG Tablet PO (10:08)
[2020-04-11] MEDS: buPROPion (XL) 150 MG TABLET.XL PO (10:08)
[2020-04-11] MEDS: guaiFENesin 1,200 MG Tablet 1200 MG PO ×2 (10:08→21:37)
[2020-04-11] MEDS: Lisinopril 20 MG Tablet PO (10:08)
[2020-04-11] MEDS: Enoxaparin 40 MG/0.4 ML Syringe SC (10:09)
[2020-04-11] MEDS: Lactated Ringers 1,000 ML 100 ML IV (12:02)
--- NOTE | 2020-04-11 12:14 | PN_ITS ---
<Geovanna Shen LONG CHAIN DYEING MACHINE OPERATOR - Last Filed: 04/11/20 12:26> Patient Problems: Active and Suspected Problems (Last Reviewed 11/19/17 @ 10:37 by Savannah raya) Asthma exacerbation (Acute) Pneumonia involving right lung (Acute) Right moderate large pleural effusion (Acute) Subjective: Patient seen and examined. Reports improvement in shortness of breath. Denies cough, fever, chills. Underwent repeat CTA this morning which was negative for PE. - Physical Exam Vitals/I&O's: Vital Signs Temp Pulse Resp BP Pulse Ox 97.2 F L 118 H 18 146/85 H 92 04/11/20 12:00 04/11/20 12:00 04/11/20 12:00 04/11/20 12:00 04/11/20 12:00 Oxygen Flow Rate (L/min) 5.5 Oxygen Delivery Method Nasal Cannula Weight: 393 lb 8.402 oz Body Mass Index (BMI) 58.4 Intake and Output for Last 24 Hours 04/09/20 04/10/20 04/11/20 23:59 23:59 23:59 Intake Total 830 / 830 650 / 650 Output Total 700 / 700 Balance 830 / 830 -50 / -50 General: Alert, Oriented x3, Cooperative HEENT: Atraumatic, PERRLA, EOMI, Normocephalic Neck: Supple, No JVD, Negative Carotid Bruits Lungs: Clear to auscultation, Diminished Cardiovascular: Regular Rhythm, No murmurs, Tachycardic Abdomen: Bowel Sounds Present, Soft, Non Tender, Non-Distended, Obese Extremities: No clubbing, No cyanosis, No edema, Capillary Refill Less than 3 Seconds Skin: No rashes, No breakdown Musculoskeletal: No Tenderness to Palpation of Joints or Extremities Neurological: Cranial nerves II-XII grossly intact, Neuro grossly intact Psych/Mental Status: Normal Affect, Appropriate Microbiology Past 72 Hours 04/10/20 18:15 Urine, Clean Catch Legionella Antigen - Final 04/10/20 18:15 Urine, Clean Catch Streptococcus pneumoniae Antigen (M - Final 04/10/20 10:21 Mucosa - Nasopharyngeal Respiratory Panel (PCR) - Final Laboratory Results 04/10/20 10:20: COVID-19 ([facility]) Negative 04/10/20 13:15: Magnesium 2.0 04/10/20 13:15: Lactic Acid 1.3 04/10/20 13:15: MRSA (PCR) Negative 04/11/20 05:50: Sodium 138, Potassium 4.3, Chloride 106, Carbon Dioxide 28.0, Anion Gap 4 L, BUN 20 H, Creatinine 0.78, Estim Creat Clear Calc 96.19, Est GFR (MDRD) Af Amer 103, Est GFR (MDRD) Non-Af 85, BUN/Creatinine Ratio 25.6 H, Glucose 151 H, Calcium 9.3, Total Bilirubin 0.50, Direct Bilirubin 0.17, AST 30, ALT 19, Alkaline Phosphatase 90, Total Protein 7.7, Albumin 3.1 L, Globulin 4.6 H 04/11/20 05:50: WBC 31.1 H*, RBC 3.62 L, Hgb 10.0 L, Hct 34.3 L, MCV 94.8, MCH 27.6, MCHC 29.2 L, RDW Std Deviation 58.4 H, RDW Coeff of Ana M 17.1 H, Plt Count 323, MPV 11.4, Immature Gran % (Auto) 1.800 H, Neut % (Auto) 88.4 H, Lymph % (Auto) 4.8 L, [place] % (Auto) 4.8, Eos % (Auto) 0.0, Baso % (Auto) 0.2, Absolute Neuts (auto) 27.6 H, Absolute Lymphs (auto) 1.48, Nucleated RBC % 0, Differential Comment SCANNED, Diff Path Review May foll Current Medications Acetaminophen (Tylenol) 650 mg PO Q6H PRN PRN PRN Reason: Pain Score 1-10/Temp > 100.7 F Al Hydroxide/Mg Hydroxide (Mylanta Ii) 30 ml PO Q6H PRN PRN PRN Reason: Gastric Burning Albuterol Sulfate (Ventolin Aerosols) 2.5 mg INHALATION Q2H PRN PRN PRN Reason: SOB/Wheezing Albuterol/Ipratropium (Duoneb) 3 ml INHALATION Q4H.RT [facility] Last Admin: 04/11/20 11:07 Dose: 3 ml Documented by: Bupropion HCl (Wellbutrin Xl) 150 mg PO DAILY [facility] Last Admin: 04/11/20 10:08 Dose: 150 mg Documented by: Enoxaparin Sodium (Lovenox) 40 mg SC Q12 [facility] Last Admin: 04/11/20 10:09 Dose: 40 mg Documented by: Guaifenesin (Mucinex) 1,200 mg PO BID [facility] Last Admin: 04/11/20 10:08 Dose: 1,200 mg Documented by: Sodium Chloride () 1,000 mls @ 30 mls/hr IV .[id number] [facility] Last Admin: 04/10/20 13:28 Dose: 30 mls/hr Documented by: Piperacillin Sod/Tazobactam (Sod 3.375 gm/ Sodium Chloride) 50 mls @ 12.5 mls/hr IV Q8 [facility] Last Infusion: 04/11/20 12:02 Dose: Infused Documented by: Lactated Ringer's () 1,000 mls @ 100 mls/hr IV .Q10H [facility] Last Admin: 04/11/20 12:02 Dose: 100 mls/hr Documented by: Levothyroxine Sodium (Synthroid) 50 mcg PO DAILY@0600 [facility] Last Admin: 04/11/20 06:10 Dose: 50 mcg Documented by: Lisinopril (Zestril) 20 mg PO DAILY [facility] Last Admin: 04/11/20 10:08 Dose: 20 mg Documented by: Methylprednisolone (Solu-Medrol) 40 mg IV Q8 [facility] Last Admin: 04/11/20 06:10 Dose: 40 mg Documented by: Montelukast Sodium (Singulair) 10 mg PO QHS [facility] Last Admin: 04/10/20 22:02 Dose: 10 mg Documented by: Nitroglycerin (Nitrostat) 0.4 mg SUBLINGUAL Q5M PRN PRN Reason: CARDIAC/CHEST PAIN Pantoprazole Sodium (Protonix) 20 mg PO DAILY [facility] Last Admin: 04/11/20 10:08 Dose: 20 mg Documented by: Polyethylene Glycol (Miralax) 17 gm PO DAILY [facility] Last Admin: 04/11/20 10:08 Dose: Not Given Documented by: Pravastatin Sodium (Pravachol) 20 mg PO QHS [facility] Last Admin: 04/10/20 22:02 Dose: 20 mg Documented by: Prochlorperazine Edisylate (Compazine Iv) 5 mg IV Q4H PRN PRN PRN Reason: Breakthrough Nausea/Vomiting Senna/Docusate Sodium (Senokot-S, Selene-Colace) 2 tablet PO BID PRN PRN PRN Reason: Constipation Sodium Chloride () 10 - 40 ml IV UD PRN PRN Reason: SALINE FLUSH Last Admin: 04/10/20 22:03 Dose: 10 ml Documented by: Medical Necessity - Tobacco Use Smoking Status: Never smoker Tobacco Use: Non-smoker Assessment/Plan All Active Problems (Last Reviewed 11/19/17 @ 10:37 by Savannah Carmen) Asthma exacerbation (Acute) Pneumonia involving right lung (Acute) Right moderate large pleural effusion (Acute) Arthritis of knee, left (Acute) URI, acute (Acute) 1. Acute hypoxic respiratory failure secondary to asthma exacerbation and right pleural effusion-pulmonary following. Suspect pleural effusion may be underlying pneumonia. On IV Zosyn. IV Solu-Medrol. Albuterol DuoNeb aerosols. Continue supplement oxygen to maintain O2 at or above 90%. Patient to undergo right-sided thoracentesis tomorrow, pleural fluid studies ordered. Respiratory panel and COVID negative. CTA negative for PE. 2. Hypertension-stable, continue lisinopril. 3. Hyperlipidemia-continue statin. 4. GERD-continue PPI. 5. Morbid obesity-encouraged diet and lifestyle modifications. 6. Anxiety/depression-continue bupropion, escitalopram. DVT prophylaxis-Lovenox subcu This patient was seen by KARLA Ash under the supervision of Dr. Goodwin. <Liu Goodwin - Last Filed: 04/11/20 12:38> Subjective: Seen and examined. No fever or chills. Patient is tachycardic, heart rate in 112 to 120/min no hypotension. On 5.5 L of oxygen. Overall patient feels better than yesterday. No shortness of breath at rest. Physical exam General: Alert, Oriented x3, Cooperative HEENT: Atraumatic, PERRLA, EOMI, Normocephalic Oral: No Gingival or Mucosal Lesions/ Ulcerations Neck: Supple, No JVD, Negative Carotid Bruits Lungs: Air entry very diminished in right posterior half of lung. No crepitation/rhonchi/wheezing. No tachypnea but significant hypoxia present. Cardiovascular: Sinus tachycardia, regular Rhythm, Normal S1, Normal S2, No murmurs Abdomen: Bowel Sounds Present, Soft, Non Tender, Non-Distended : No renal angle tenderness. No suprapubic tenderness. Extremities: Mild ankle bilateral edema, Capillary Refill Less than 3 Seconds Skin: No rashes, No breakdown Musculoskeletal: No Tenderness to Palpation of Joints or Extremities Neurological: Cranial nerves II-XII grossly intact, Deep Tendon Reflexes 2+/4 and Symmetrical, Neuro grossly intact Psych/Mental Status: Normal Affect, Appropriate. - Physical Exam Vitals/I&O's: Vital Signs Temp Pulse Resp BP Pulse Ox 97.2 F L 118 H 18 146/85 H 92 04/11/20 12:00 04/11/20 12:00 04/11/20 12:00 04/11/20 12:00 04/11/20 12:00 Oxygen Flow Rate (L/min) 5.5 Oxygen Delivery Method Nasal Cannula Weight: 393 lb 8.402 oz Body Mass Index (BMI) 58.4 Intake and Output for Last 24 Hours 04/09/20 04/10/20 04/11/20 23:59 23:59 23:59 Intake Total 830 / 830 1336 / 1336 Output Total 700 / 700 Balance 830 / 830 636 / 636 Microbiology Past 72 Hours 04/10/20 18:15 Urine, Clean Catch Legionella Antigen - Final 04/10/20 18:15 Urine, Clean Catch Streptococcus pneumoniae Antigen (M - Final 04/10/20 10:21 Mucosa - Nasopharyngeal Respiratory Panel (PCR) - Final Laboratory Results 04/10/20 13:15: Magnesium 2.0 04/10/20 13:15: Lactic Acid 1.3 04/10/20 13:15: MRSA (PCR) Negative 04/11/20 05:50: Sodium 138, Potassium 4.3, Chloride 106, Carbon Dioxide 28.0, Anion Gap 4 L, BUN 20 H, Creatinine 0.78, Estim Creat Clear Calc 96.19, Est GFR (MDRD) Af Amer 103, Est GFR (MDRD) Non-Af 85, BUN/Creatinine Ratio 25.6 H, Glucose 151 H, Calcium 9.3, Total Bilirubin 0.50, Direct Bilirubin 0.17, AST 30, ALT 19, Alkaline Phosphatase 90, Total Protein 7.7, Albumin 3.1 L, Globulin 4.6 H 04/11/20 05:50: WBC 31.1 H*, RBC 3.62 L, Hgb 10.0 L, Hct 34.3 L, MCV 94.8, MCH 27.6, MCHC 29.2 L, RDW Std Deviation 58.4 H, RDW Coeff of Ana M 17.1 H, Plt Count 323, MPV 11.4, Immature Gran % (Auto) 1.800 H, Neut % (Auto) 88.4 H, Lymph % (Auto) 4.8 L, [place] % (Auto) 4.8, Eos % (Auto) 0.0, Baso % (Auto) 0.2, Absolute Neuts (auto) 27.6 H, Absolute Lymphs (auto) 1.48, Nucleated RBC % 0, Differential Comment SCANNED, Diff Path Review May foll Current Medications Acetaminophen (Tylenol) 650 mg PO Q6H PRN PRN PRN Reason: Pain Score 1-10/Temp > 100.7 F Al Hydroxide/Mg Hydroxide (Mylanta Ii) 30 ml PO Q6H PRN PRN PRN Reason: Gastric Burning Albuterol Sulfate (Ventolin Aerosols) 2.5 mg INHALATION Q2H PRN PRN PRN Reason: SOB/Wheezing Albuterol/Ipratropium (Duoneb) 3 ml INHALATION Q4H.RT [facility] Last Admin: 04/11/20 11:07 Dose: 3 ml Documented by: Bupropion HCl (Wellbutrin Xl) 150 mg PO DAILY [facility] Last Admin: 04/11/20 10:08 Dose: 150 mg Documented by: Enoxaparin Sodium (Lovenox) 40 mg SC Q12 [facility] Last Admin: 04/11/20 10:09 Dose: 40 mg Documented by: Guaifenesin (Mucinex) 1,200 mg PO BID [facility] Last Admin: 04/11/20 10:08 Dose: 1,200 mg Documented by: Sodium Chloride () 1,000 mls @ 30 mls/hr IV .[id number] [facility] Last Infusion: 04/11/20 12:20 Dose: 0 mls/hr Documented by: Piperacillin Sod/Tazobactam (Sod 3.375 gm/ Sodium Chloride) 50 mls @ 12.5 mls/hr IV Q8 [facility] Last Infusion: 04/11/20 12:02 Dose: Infused Documented by: Sodium Chloride () 1,000 mls @ 100 mls/hr IV .Q10H [facility] Stop: 04/12/20 08:29 Levothyroxine Sodium (Synthroid) 50 mcg PO DAILY@0600 [facility] Last Admin: 04/11/20 06:10 Dose: 50 mcg Documented by: Lisinopril (Zestril) 20 mg PO DAILY [facility] Last Admin: 04/11/20 10:08 Dose: 20 mg Documented by: Methylprednisolone (Solu-Medrol) 40 mg IV Q8 [facility] Last Admin: 04/11/20 06:10 Dose: 40 mg Documented by: Montelukast Sodium (Singulair) 10 mg PO QHS [facility] Last Admin: 04/10/20 22:02 Dose: 10 mg Documented by: Nitroglycerin (Nitrostat) 0.4 mg SUBLINGUAL Q5M PRN PRN Reason: CARDIAC/CHEST PAIN Pantoprazole Sodium (Protonix) 20 mg PO DAILY [facility] Last Admin: 04/11/20 10:08 Dose: 20 mg Documented by: Polyethylene Glycol (Miralax) 17 gm PO DAILY [facility] Last Admin: 04/11/20 10:08 Dose: Not Given Documented by: Pravastatin Sodium (Pravachol) 20 mg PO QHS [facility] Last Admin: 04/10/20 22:02 Dose: 20 mg Documented by: Prochlorperazine Edisylate (Compazine Iv) 5 mg IV Q4H PRN PRN PRN Reason: Breakthrough Nausea/Vomiting Senna/Docusate Sodium (Senokot-S, Selene-Colace) 2 tablet PO BID PRN PRN PRN Reason: Constipation Sodium Chloride () 10 - 40 ml IV UD PRN PRN Reason: SALINE FLUSH Last Admin: 04/10/20 22:03 Dose: 10 ml Documented by: Assessment/Plan This patient was seen in conjunction with LONG CHAIN DYEING MACHINE OPERATORGeovanna. I have independently interviewed and examined the patient and reviewed pertinent history, examination findings, laboratory and plan of management. I have reviewed the note and agree with the documented findings with the few additional points. In brief, patient is 44-year-old female with history of asthma and morbid obesity admitted with acute hypoxic respiratory failure secondary to asthma exacerbation from right moderate pleural effusion and right lung upper and lower lobe pneumonia. Patient seen by senior accounts payable specialist. IV antibiotic Zosyn monotherapy. COVID-19 PCR test negative. On bronchodilator, IV Solu-Medrol, incentive spirometry and pep and Mucinex for asthma exacerbation. Ultrasound- guided thoracocentesis for Sunday. Other comorbidities include hypertension, dyslipidemia, GERD and morbid obesity and anxiety and depression I have discussed my assessment with LONG CHAIN DYEING MACHINE OPERATORGeovanna and orders have been reviewed. Inpatient E&M: 17318 Subs Hosp L2
[2020-04-11] MEDS: 0.9% Normal Saline 1,000 ML 100 ML IV (13:29)
[2020-04-11] MEDS: 0.9% Saline Lock 10 ML Syringe IV (13:38)
[2020-04-11] MEDS: Montelukast 10 MG Tablet PO (21:38)
[2020-04-11] MEDS: Pravastatin 20 MG Tablet PO (21:38)
[2020-04-12] VITALS (27 sets, daily range): BP systolic 114–160; BP diastolic 68–96; PULSE 94–124; RESP 16–30; TEMP 36.1–36.6; O2SAT 90–98
--- NOTE | 2020-04-12 | FLU_PTH ---
PATIENT: TATIANA DIGGS LOC: [facility] U#:[id number] AGE/SX: 44/F ROOM: [facility] RE04/10/[address]: Dr. Kendal Shetty DO : 1975 BED: 1 DIS: 04/14/2020 SPEC #: [id number] RECD: 04/12/20 14:01 STATUS: EDUARDO MARVIN #: [id number] FRED: 04/12/20 00:[address]: Kendal Shetty DEPT: CYTOLOGY RECD BY: Isreal Sarabia ENTERED: 04/13/20 09:13 SP TYPE: Fluid OTHR DR: DO Dr. Luca Butler MD Dr. Prakash Chand, MD Tissues: THORACIC FLUID Procedures: Special Stain Group II Surgery Specimen Level IV Cytospin Fluid HEADER OPERATION: Ultrasound-guided right thoracentesis PRE-OP DIAGNOSIS: Right pneumonia with large right effusion TISSUE SUBMITTED: Thoracentesis fluid for cytology DIAGNOSIS CYTOLOGY Thoracentesis fluid for cytology (cytospin and cell block): Negative for malignant cells. See comment. AM:eneida 04/14/20 COMMENT The specimen contains reactive mesothelial cells and macrophages. Clinical correlation is suggested. CYTOLOGY STUDY Slides are reviewed. CYTOLOGY GROSS Received is 1110 ml of dark red cloudy fluid labeled with the patient's name and and designated per the requisition as thoracentesis. Submitted for cytology preparation including cell block. / eneida 04/13/20 TC:5 CPT: 85647, 08931
--- NOTE | 2020-04-12 02:31 | NURSING ---
PT SLEEPING, PULSE OX87% ON THE 6LNC D/T MOUTH BREATHING. RESP 28. PT WAS WOKEN UP, ENCOURAGED TO BREATH THRU HER NOSE AND USE THE IS. PT AMBULATED TO THE RESTROOM, WAS 84% ON 6L W EXCURSION. PT SAT STRAIGHT UP IN BED USING THE I.S. AND HER PULSE OX EVENTUALLY WENT UP TO 94%. RESP CALLED TO GIVE HER A BREATHING TREATMENT AND PLACE HER ON HIGH FLOW O2 SAT 7L, 90%. LUNGS SOUNDS DIM/ABSENT ON THE RIGHT , FEW RHONCHI IN THE LEFT BASE.
[2020-04-12] MEDS: Ipratropium/Albuterol Sulfate 3 ML AMPUL.NEB INHALATION ×6 (02:41→23:00)
[2020-04-12] MEDS: 0.9% Normal Saline 1,000 ML 100 ML IV (03:12)
[2020-04-12 05:40] LABS: Hematocrit 34.3 % (37-47); Hemoglobin 9.8 g/dL (12.0-15.0); Mean Corp Hgb Conc 28.6 g/dL (32-36); Mean Corpuscular Hgb 27.2 pg (27.0-32.0); Mean Corpuscular Volume 95.3 fL (81-99); Mean Platelet Vol. 11.6 fl (6.2-12.0); POSITIVE COUNT YES; Platelet Count 302 K/mm3 (150-450); RBC Distribution Width CV 17.2 % (11.6-14.6); RBC Distribution Width SD 59.3 fl (35.1-43.9)
[2020-04-12 05:48] LABS: International Normalized Ratio 1.1; Prothrombin Time (Protime)PT. 13.5 SECONDS (11.7-14.9)
[2020-04-12] MEDS: Levothyroxine 50 MCG Tablet PO (05:48)
[2020-04-12 05:49] LABS: Partial Thromboplast Time 24.9 Seconds (24.1-36.2)
[2020-04-12 05:59] LABS: ALB/GLOB Ratio 0.7 RATIO (0.9-2.4); Anion Gap 5 (5-15); BUN 24 mg/dL (7-18); BUN/Creat Ratio 33.5 RATIO (10-20); Calcium,Total 9.3 mg/dL (8.5-10.1); Chloride 106 mmol/L (98-107); Creatinine, Serum 0.72 mg/dL (0.55-1.02); EST Glomerular Filtration Rate 94 mL/min (>60); Est Glom Filt Rate - Afr Amer 114 mL/min (>60); Globulin 4.4 g/dL (2.2-4.2); Glucose 138 mg/dL (74-106); LDH 262 U/L (84-246); Potassium 4.4 mmol/L (3.5-5.1); Protein, Total 7.4 g/dL (6.4-8.2); Sodium Level 137 mmol/L (136-145)
[2020-04-12 06:01] LABS: White Blood Count 39.4 K/mm3 (4.4-11.0)
[2020-04-12 06:02] LABS: Scan Indicated on CBC? Y/N YES- FLAGS NOTED
[2020-04-12 06:11] LABS: Differential Comment SCANNED
[2020-04-12] MEDS: guaiFENesin 1,200 MG Tablet 1200 MG PO ×2 (08:22→21:21)
[2020-04-12] MEDS: Pantoprazole Sodium 20 MG Tablet PO (08:22)
[2020-04-12] MEDS: buPROPion (XL) 150 MG TABLET.XL PO (08:22)
[2020-04-12] MEDS: Lisinopril 20 MG Tablet PO (08:23)
--- NOTE | 2020-04-12 08:41 | US_ITS ---
PROCEDURE: ULTRASOUND GUIDED THORACENTESIS. DATE: 04/12/2020. INDICATION: Female, 44 years old. Right pleural effusion PHYSICIAN: Nathan Manriquez M.D. PROCEDURE: The risks, benefits, and alternatives to the procedure were explained to the patient. The specific risks of bleeding, infection, and pneumothorax requiring chest tube insertion were discussed and accepted. Written informed consent was obtained. Ultrasonographic evaluation of the right lower pleural space was carried out. An adequate pocket was identified. The patient was placed in the sitting, upright position. The overlying skin was prepped and draped in sterile fashion. 1% lidocaine was administered subcutaneously for local anesthesia. Under ultrasound guidance, a 5 Nigerian thoracentesis needle/catheter system was advanced into the right posterior lower pleural fluid collection. Approximately 700 mL of bloody fluid was drained. The catheter was removed, and a sterile dressing was applied. A specimen was collected and sent to the laboratory for analysis, as requested by the referring clinician. The patient tolerated the procedure well. A chest x-ray was ordered. US/Thoracentesis W US IMPRESSION: Ultrasound-guided right thoracentesis. Electronically Signed: Nathan Manriquez, at 14:38 EDT , Service support ,
--- NOTE | 2020-04-12 10:12 | PN_ITS ---
Patient Problems: Active and Suspected Problems (Last Reviewed 11/19/17 @ 10:37 by Savannah Carmen) Asthma exacerbation (Acute) Pneumonia involving right lung (Acute) Right moderate large pleural effusion (Acute) Subjective: Patient did okay overnight. Patient reports she feels subjectively improved compared to previous presentation. Patient has never required supplemental oxygen previously. Patient denies any history of pleural effusion in the past. Objective: CT personally reviewed shows right pleural effusion with collapse of right lower lobe and no pulmonary embolism. Patient is never had an echocardiogram or pulmonary function tests available for review - Physical Exam Vitals/I&O's: Vital Signs Temp Pulse Resp BP Pulse Ox 36.4 C L 116 H 22 H 137/73 H 96 04/12/20 08:14 04/12/20 08:14 04/12/20 08:48 04/12/20 08:14 04/12/20 08:14 Oxygen Flow Rate (L/min) 7 Oxygen Delivery Method Nasal Cannula Weight: 181.5 kg Body Mass Index (BMI) 58.4 Intake and Output for Last 24 Hours 04/10/20 04/11/20 04/12/20 23:59 23:59 23:59 Intake Total 830 / 830 1937.66 / 1937.66 1013.33 / 1013.33 Output Total 700 / 700 Balance 830 / 830 1237.66 / 1237.66 1013.33 / 1013.33 General: Alert, Oriented x3, Cooperative, No apparent distress, Well developed, Well nourished, - - Morbidly obese. Speaking in full sentences HEENT: Atraumatic, PERRLA, EOMI, Normocephalic, - - No scleral icterus or injection noted Oral: Moist Mucosa, No Gingival or Mucosal Lesions/ Ulcerations, - - Crowded posterior pharynx Neck: Supple, No JVD, No Nodes, Trachea Midline Lungs: No rhonchi, No wheeze, Diminished - Right base, - - Dullness to percussion right base Cardiovascular: Regular rate, Regular Rhythm, Normal S1, Normal S2, No murmurs, No rub noted, No Gallop Abdomen: Bowel Sounds Present, Soft, Non Tender, Non-Distended, Obese Extremities: No clubbing, No cyanosis, Edema Skin: No rashes, No breakdown Musculoskeletal: No Tenderness to Palpation of Joints or Extremities Lymphatic: No Cervical, Supraclavicular, or Inguinal Adenopathy Neurological: Cranial nerves II-XII grossly intact, Neuro grossly intact, Motor Exam 5/5 strength throughout Psych/Mental Status: Alert and oriented to time, place, person, mood and affect Microbiology Past 72 Hours 04/11/20 08:00 Sputum, Expectorated/Coughed Gram Stain - Final 04/10/20 18:15 Urine, Clean Catch Legionella Antigen - Final 04/10/20 18:15 Urine, Clean Catch Streptococcus pneumoniae Antigen (M - Milka l 04/10/20 10:21 Mucosa - Nasopharyngeal Respiratory Panel (PCR) - Final Laboratory Results 04/12/20 05:12: Sodium 137, Potassium 4.4, Chloride 106, Carbon Dioxide 26.0, Anion Gap 5, BUN 24 H, Creatinine 0.72, Estim Creat Clear Calc 104.20, Est GFR (MDRD) Af Amer 114, Est GFR (MDRD) Non-Af 94, BUN/Creatinine Ratio 33.5 H, Glucose 138 H, Calcium 9.3, Lactate Dehydrogenase 262 H, Total Protein 7.4, Globulin 4.4 H, Albumin/Globulin Ratio 0.7 L 04/12/20 05:12: WBC 39.4 H*, RBC 3.60 L, Hgb 9.8 L, Hct 34.3 L, MCV 95.3, MCH 27.2, MCHC 28.6 L, RDW Std Deviation 59.3 H, RDW Coeff of Ana M 17.2 H, Plt Count 302, MPV 11.6, Differential Comment SCANNED, Diff Path Review November04/12/20 05:12: PT 13.5, INR 1.1, APTT 24.9 Current Medications Acetaminophen (Tylenol) 650 mg PO Q6H PRN PRN PRN Reason: Pain Score 1-10/Temp > 100.7 F Al Hydroxide/Mg Hydroxide (Mylanta Ii) 30 ml PO Q6H PRN PRN PRN Reason: Gastric Burning Albuterol Sulfate (Ventolin Aerosols) 2.5 mg INHALATION Q2H PRN PRN PRN Reason: SOB/Wheezing Albuterol/Ipratropium (Duoneb) 3 ml INHALATION Q4H.RT [facility] Last Admin: 04/12/20 06:46 Dose: 3 ml Documented by: Bupropion HCl (Wellbutrin Xl) 150 mg PO DAILY [facility] Last Admin: 04/12/20 08:22 Dose: 150 mg Documented by: Enoxaparin Sodium (Lovenox) 40 mg SC Q12 [facility] Last Admin: 04/11/20 10:09 Dose: 40 mg Documented by: Guaifenesin (Mucinex) 1,200 mg PO BID [facility] Last Admin: 04/12/20 08:22 Dose: 1,200 mg Documented by: Piperacillin Sod/Tazobactam (Sod 3.375 gm/ Sodium Chloride) 50 mls @ 12.5 mls/hr IV Q8 [facility] Last Admin: 04/12/20 05:45 Dose: 12.5 mls/hr Documented by: Levothyroxine Sodium (Synthroid) 50 mcg PO DAILY@0600 [facility] Last Admin: 04/12/20 05:48 Dose: 50 mcg Documented by: Lisinopril (Zestril) 20 mg PO DAILY [facility] Last Admin: 04/12/20 08:23 Dose: 20 mg Documented by: Methylprednisolone (Solu-Medrol) 40 mg IV Q8 [facility] Last Admin: 04/12/20 05:48 Dose: 40 mg Documented by: Montelukast Sodium (Singulair) 10 mg PO QHS [facility] Last Admin: 04/11/20 21:38 Dose: 10 mg Documented by: Nitroglycerin (Nitrostat) 0.4 mg SUBLINGUAL Q5M PRN PRN Reason: CARDIAC/CHEST PAIN Pantoprazole Sodium (Protonix) 20 mg PO DAILY [facility] Last Admin: 04/12/20 08:22 Dose: 20 mg Documented by: Polyethylene Glycol (Miralax) 17 gm PO DAILY [facility] Last Admin: 04/12/20 08:22 Dose: Not Given Documented by: Pravastatin Sodium (Pravachol) 20 mg PO QHS [facility] Last Admin: 04/11/20 21:38 Dose: 20 mg Documented by: Prochlorperazine Edisylate (Compazine Iv) 5 mg IV Q4H PRN PRN PRN Reason: Breakthrough Nausea/Vomiting Senna/Docusate Sodium (Senokot-S, Selene-Colace) 2 tablet PO BID PRN PRN PRN Reason: Constipation Sodium Chloride () 10 - 40 ml IV UD PRN PRN Reason: SALINE FLUSH Last Admin: 04/11/20 13:38 Dose: 10 ml Documented by: Medical Necessity - Tobacco Use Smoking Status: Never smoker Tobacco Use: Non-smoker Assessment/Plan All Active Problems (Last Reviewed 11/19/17 @ 10:37 by Savannah Carmen) Asthma exacerbation (Acute) Pneumonia involving right lung (Acute) Right moderate large pleural effusion (Acute) Arthritis of knee, left (Acute) URI, acute (Acute) RECOMMENDATIONS: 1. Continue Zosyn as monotherapy. 2. Await therapeutic and diagnostic thoracentesis 3. Continue scheduled bronchodilators and IV steroids as ordered. 4. Wean supplemental oxygen to maintain saturations at or above 90%. 5. Encourage incentive spirometer use and mobilize patient as tolerated. 6. Will likely require outpatient work-up for quantification clarification of lung function IMPRESSIONS: 1. Acute hypoxemic respiratory failure Unclear etiology of right lower lobe effusion. Patient does have a significant leukocytosis, but this may be secondary to steroid therapy. Patient has had multiple studies with no pulmonary embolism noted. Patient has a reported history of asthma, but this cannot be confirmed. Reasonable to continue steroids and bronchodilators for now. Further recommendations following thoracentesis. Continue to wean oxygen as tolerated. Patient would benefit from BiPAP therapy overnight as there is high clinical suspicion for concomitant obstructive sleep apnea. 2. Morbid obesity/GERD/hypertension/hyperlipidemia/hypothyroidism Complicates care, management, recovery and prognosis. Continue home medications as indicated. Inpatient E&M: 21135 [facility] L3
--- NOTE | 2020-04-12 10:30 | CASEMGMT ---
KAREL SANDERS assessment: Face to Face with patient for initial transition planning/care coordination assessment. KAREL SANDERS introduced self and role at [facility], pt voices understanding and consents to assessment at this time. Pt is sitting up in chair in no distress at this time. Pt is A/Ox4 at this time and answers all questions appropriately at this time. Pt is currently on 6-7liters nc but is scheduled for a thoracentesis this afternoon. Care providers, pharmacy, and demographics verified/updated at this time. Presentation: Pt c/o increased SOB d/t asthma the past couple days Admitting dx: Right pna w/ large right effusion PCP: Sandra Specialists: Pt states no current specialists. Preferred Pharmacy: [facility] Insurance: [facility] Prescription Benefit: [facility] Living Will/HPOA: Pt states no LW/HPOA and declines AD info at this time. LNOK: Sindhu Peter, mother Living Arrangements: Pt states lives with parents whom she cares for and states no concerns at home at this time. Pt is independent with ADL's. Transportation: Pt states drives self and states no transportation concerns at this time. DME/HHC: Pt states no current DME or need for any at this time. Pt states no hx of HHC or SNF in the past. Pt states no concerns with going home at time of discharge. 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 Pt states does not smoke cigarettes or drink ETOH. Pt states no further concerns/needs at this time. CM to follow for any further discharge planning/needs. Advised pt to ask for CM if any further questions/concerns/needs arise, voices understanding. Pt Goal: Home Plan: [place] KAREL SANDERS
--- NOTE | 2020-04-12 12:16 | PN_ITS ---
<Geovanna Shen REMOTE CONTROL ASSEMBLER - Last Filed: 04/12/20 12:27> Patient Problems: Active and Suspected Problems (Last Reviewed 11/19/17 @ 10:37 by Savannah raya) Asthma exacerbation (Acute) Pneumonia involving right lung (Acute) Right moderate large pleural effusion (Acute) Subjective: Patient seen and examined. Denies increased shortness of breath however requiring increased supplemental oxygen. To undergo thoracentesis this afternoon. Denies fever/chills. - Physical Exam Vitals/I&O's: Vital Signs Temp Pulse Resp BP Pulse Ox 97.3 F L 103 H 18 141/87 H 94 04/12/20 10:20 04/12/20 10:57 04/12/20 10:57 04/12/20 10:20 04/12/20 10:20 Oxygen Flow Rate (L/min) 7 Oxygen Delivery Method Nasal Cannula Weight: 400 lb 2.224 oz Body Mass Index (BMI) 58.4 Intake and Output for Last 24 Hours 04/10/20 04/11/20 04/12/20 23:59 23:59 23:59 Intake Total 830 / 830 1937.66 / 1937.66 1063.33 / 1063.33 Output Total 700 / 700 Balance 830 / 830 1237.66 / 1237.66 1063.33 / 1063.33 General: Alert, Oriented x3, Cooperative HEENT: Atraumatic, PERRLA, EOMI, Normocephalic Neck: Supple, No JVD, Negative Carotid Bruits Lungs: Clear to auscultation, Diminished Cardiovascular: Regular Rhythm, No murmurs, Tachycardic Abdomen: Bowel Sounds Present, Soft, Non Tender, Non-Distended, Obese Extremities: No clubbing, No cyanosis, No edema, Capillary Refill Less than 3 Seconds Skin: No rashes, No breakdown Musculoskeletal: No Tenderness to Palpation of Joints or Extremities Neurological: Cranial nerves II-XII grossly intact, Neuro grossly intact Psych/Mental Status: Normal Affect, Appropriate Microbiology Past 72 Hours 04/11/20 08:00 Sputum, Expectorated/Coughed Gram Stain - Final 04/10/20 18:15 Urine, Clean Catch Legionella Antigen - Final 04/10/20 18:15 Urine, Clean Catch Streptococcus pneumoniae Antigen (M - Final 04/10/20 10:21 Mucosa - Nasopharyngeal Respiratory Panel (PCR) - Final Laboratory Results 04/12/20 05:12: Sodium 137, Potassium 4.4, Chloride 106, Carbon Dioxide 26.0, Anion Gap 5, BUN 24 H, Creatinine 0.72, Estim Creat Clear Calc 104.20, Est GFR (MDRD) Af Amer 114, Est GFR (MDRD) Non-Af 94, BUN/Creatinine Ratio 33.5 H, Glucose 138 H, Calcium 9.3, Lactate Dehydrogenase 262 H, Total Protein 7.4, Globulin 4.4 H, Albumin/Globulin Ratio 0.7 L 04/12/20 05:12: WBC 39.4 H*, RBC 3.60 L, Hgb 9.8 L, Hct 34.3 L, MCV 95.3, MCH 27.2, MCHC 28.6 L, RDW Std Deviation 59.3 H, RDW Coeff of Ana M 17.2 H, Plt Count 302, MPV 11.6, Differential Comment SCANNED, Diff Path Review November04/12/20 05:12: PT 13.5, INR 1.1, APTT 24.9 Current Medications Acetaminophen (Tylenol) 650 mg PO Q6H PRN PRN PRN Reason: Pain Score 1-10/Temp > 100.7 F Al Hydroxide/Mg Hydroxide (Mylanta Ii) 30 ml PO Q6H PRN PRN PRN Reason: Gastric Burning Albuterol Sulfate (Ventolin Aerosols) 2.5 mg INHALATION Q2H PRN PRN PRN Reason: SOB/Wheezing Albuterol/Ipratropium (Duoneb) 3 ml INHALATION Q4H.RT [facility] Last Admin: 04/12/20 10:57 Dose: 3 ml Documented by: Bupropion HCl (Wellbutrin Xl) 150 mg PO DAILY [facility] Last Admin: 04/12/20 08:22 Dose: 150 mg Documented by: Enoxaparin Sodium (Lovenox) 40 mg SC Q12 [facility] Last Admin: 04/11/20 10:09 Dose: 40 mg Documented by: Guaifenesin (Mucinex) 1,200 mg PO BID [facility] Last Admin: 04/12/20 08:22 Dose: 1,200 mg Documented by: Piperacillin Sod/Tazobactam (Sod 3.375 gm/ Sodium Chloride) 50 mls @ 12.5 mls /hr IV Q8 [facility] Last Infusion: 04/12/20 10:23 Dose: Infused Documented by: Levothyroxine Sodium (Synthroid) 50 mcg PO DAILY@0600 [facility] Last Admin: 04/12/20 05:48 Dose: 50 mcg Documented by: Lisinopril (Zestril) 20 mg PO DAILY [facility] Last Admin: 04/12/20 08:23 Dose: 20 mg Documented by: Methylprednisolone (Solu-Medrol) 40 mg IV Q8 [facility] Last Admin: 04/12/20 05:48 Dose: 40 mg Documented by: Montelukast Sodium (Singulair) 10 mg PO QHS [facility] Last Admin: 04/11/20 21:38 Dose: 10 mg Documented by: Nitroglycerin (Nitrostat) 0.4 mg SUBLINGUAL Q5M PRN PRN Reason: CARDIAC/CHEST PAIN Pantoprazole Sodium (Protonix) 20 mg PO DAILY [facility] Last Admin: 04/12/20 08:22 Dose: 20 mg Documented by: Polyethylene Glycol (Miralax) 17 gm PO DAILY [facility] Last Admin: 04/12/20 08:22 Dose: Not Given Documented by: Pravastatin Sodium (Pravachol) 20 mg PO QHS [facility] Last Admin: 04/11/20 21:38 Dose: 20 mg Documented by: Prochlorperazine Edisylate (Compazine Iv) 5 mg IV Q4H PRN PRN PRN Reason: Breakthrough Nausea/Vomiting Senna/Docusate Sodium (Senokot-S, Selene-Colace) 2 tablet PO BID PRN PRN PRN Reason: Constipation Sodium Chloride () 10 - 40 ml IV UD PRN PRN Reason: SALINE FLUSH Last Admin: 04/11/20 13:38 Dose: 10 ml Documented by: Medical Necessity - Tobacco Use Smoking Status: Never smoker Tobacco Use: Non-smoker Assessment/Plan All Active Problems (Last Reviewed 11/19/17 @ 10:37 by Savannah Carmen) Asthma exacerbation (Acute) Pneumonia involving right lung (Acute) Right moderate large pleural effusion (Acute) Arthritis of knee, left (Acute) URI, acute (Acute) 1. Acute hypoxic respiratory failure secondary to asthma exacerbation and right pleural effusion-pulmonary following. Suspect pleural effusion may be underlying pneumonia. On IV Zosyn. IV Solu-Medrol. Albuterol DuoNeb aerosols. Continue supplement oxygen to maintain O2 at or above 90%. Patient to undergo right-sided thoracentesis this afternoon, pleural fluid studies ordered. Respiratory panel and COVID negative. CTA negative for PE. Will await thoracentesis fluid studies. Patient will need walking pulse ox prior to discharge as well as outpatient follow-up with pulmonary medicine. 2. Hypertension-stable, continue lisinopril. 3. Hyperlipidemia-continue statin. 4. GERD-continue PPI. 5. Morbid obesity-encouraged diet and lifestyle modifications. 6. Anxiety/depression-continue bupropion, escitalopram. 7. Suspected ANGEL-outpatient follow-up with pulmonary medicine as noted above. DVT prophylaxis-Lovenox subcu This patient was seen by KARLA Ash under the supervision of Dr. Shetty. <Kendal Shetty - Last Filed: 04/12/20 13:47> Subjective: I agree with the above and the following is a reflection of my independent history and physical exam. Pt states that she is feeling much better overall. Is a bit anxious about the thora today. Reviewed the procedure with her. Is still on O2 but weaning. - Physical Exam Vitals/I&O's: Vital Signs Temp Pulse Resp BP Pulse Ox 97.2 F L 107 H 20 H 160/80 H 94 04/12/20 12:32 04/12/20 12:32 04/12/20 12:32 04/12/20 12:32 04/12/20 10:20 Oxygen Flow Rate (L/min) 6 Oxygen Delivery Method Nasal Cannula Weight: 181.5 kg Body Mass Index (BMI) 58.4 Intake and Output for Last 24 Hours 04/10/20 04/11/20 04/12/20 23:59 23:59 23:59 Intake Total 830 / 830 1937.66 / 1937.66 2413.33 / 2413.33 Output Total 700 / 700 Balance 830 / 830 1237.66 / 1237.66 2413.33 / 2413.33 General: Alert, Oriented x3, Cooperative, No apparent distress, Well developed, Well nourished, - - Obese WF reclining in chair next to her bed, currenlty getting an aerosol, appears comfortable HEENT: Atraumatic, PERRLA, EOMI, Normocephalic, EAC Clear Neck: Supple, Trachea Midline, Thyroid Normal Size and Texture, - - short thick neck Lungs: No rhonchi, No wheeze, No rales, Diminished - B bases R > L Cardiovascular: Regular rate, Regular Rhythm, Normal S1, Normal S2, No murmurs, No rub noted, No Gallop Abdomen: Bowel Sounds Present, Soft, Non Tender, Non-Distended, Obese Extremities: No clubbing, No cyanosis, No edema, Capillary Refill Less than 3 Seconds, Peripheral Pulses Normal Skin: No rashes, No breakdown Neurological: Cranial nerves II-XII grossly intact, Neuro grossly intact Psych/Mental Status: Normal Affect, Appropriate, Alert and oriented to time, place, person, mood and affect Microbiology Past 72 Hours 04/11/20 08:00 Sputum, Expectorated/Coughed Gram Stain - Final 04/11/20 08:00 Sputum, Expectorated/Coughed Respiratory Culture - Preliminary Appears to be normal respiratory maria luisa. Further studies to follow. 04/10/20 18:15 Urine, Clean Catch Legionella Antigen - Final 04/10/20 18:15 Urine, Clean Catch Streptococcus pneumoniae Antigen (M - Final 04/10/20 10:21 Mucosa - Nasopharyngeal Respiratory Panel (PCR) - Final Laboratory Results 04/12/20 05:12: Sodium 137, Potassium 4.4, Chloride 106, Carbon Dioxide 26.0, Anion Gap 5, BUN 24 H, Creatinine 0.72, Estim Creat Clear Calc 104.20, Est GFR (MDRD) Af Amer 114, Est GFR (MDRD) Non-Af 94, BUN/Creatinine Ratio 33.5 H, Glucose 138 H, Calcium 9.3, Lactate Dehydrogenase 262 H, Total Protein 7.4, Globulin 4.4 H, Albumin/Globulin Ratio 0.7 L 04/12/20 05:12: WBC 39.4 H*, RBC 3.60 L, Hgb 9.8 L, Hct 34.3 L, MCV 95.3, MCH 27.2, MCHC 28.6 L, RDW Std Deviation 59.3 H, RDW Coeff of Ana M 17.2 H, Plt Count 302, MPV 11.6, Differential Comment SCANNED, Diff Path Review November foll 04/12/20 05:12: PT 13.5, INR 1.1, APTT 24.9 Current Medications Acetaminophen (Tylenol) 650 mg PO Q6H PRN PRN PRN Reason: Pain Score 1-10/Temp > 100.7 F Al Hydroxide/Mg Hydroxide (Mylanta Ii) 30 ml PO Q6H PRN PRN PRN Reason: Gastric Burning Albuterol Sulfate (Ventolin Aerosols) 2.5 mg INHALATION Q2H PRN PRN PRN Reason: SOB/Wheezing Albuterol/Ipratropium (Duoneb) 3 ml INHALATION Q4H.RT [facility] Last Admin: 04/12/20 10:57 Dose: 3 ml Documented by: Bupropion HCl (Wellbutrin Xl) 150 mg PO DAILY [facility] Last Admin: 04/12/20 08:22 Dose: 150 mg Documented by: Enoxaparin Sodium (Lovenox) 40 mg SC Q12 [facility] Last Admin: 04/11/20 10:09 Dose: 40 mg Documented by: Guaifenesin (Mucinex) 1,200 mg PO BID [facility] Last Admin: 04/12/20 08:22 Dose: 1,200 mg Documented by: Piperacillin Sod/Tazobactam (Sod 3.375 gm/ Sodium Chloride) 50 mls @ 12.5 mls/hr IV Q8 [facility] Last Infusion: 04/12/20 10:23 Dose: Infused Documented by: Levothyroxine Sodium (Synthroid) 50 mcg PO DAILY@0600 [facility] Last Admin: 04/12/20 05:48 Dose: 50 mcg Documented by: Lisinopril (Zestril) 20 mg PO DAILY [facility] Last Admin: 04/12/20 08:23 Dose: 20 mg Documented by: Methylprednisolone (Solu-Medrol) 40 mg IV Q8 [facility] Last Admin: 04/12/20 05:48 Dose: 40 mg Documented by: Montelukast Sodium (Singulair) 10 mg PO QHS [facility] Last Admin: 04/11/20 21:38 Dose: 10 mg Documented by: Nitroglycerin (Nitrostat) 0.4 mg SUBLINGUAL Q5M PRN PRN Reason: CARDIAC/CHEST PAIN Pantoprazole Sodium (Protonix) 20 mg PO DAILY [facility] Last Admin: 04/12/20 08:22 Dose: 20 mg Documented by: Polyethylene Glycol (Miralax) 17 gm PO DAILY [facility] Last Admin: 04/12/20 08:22 Dose: Not Given Documented by: Pravastatin Sodium (Pravachol) 20 mg PO QHS [facility] Last Admin: 04/11/20 21:38 Dose: 20 mg Documented by: Prochlorperazine Edisylate (Compazine Iv) 5 mg IV Q4H PRN PRN PRN Reason: Breakthrough Nausea/Vomiting Senna/Docusate Sodium (Senokot-S, Selene-Colace) 2 tablet PO BID PRN PRN PRN Reason: Constipation Sodium Chloride () 10 - 40 ml IV UD PRN PRN Reason: SALINE FLUSH Last Admin: 04/11/20 13:38 Dose: 10 ml Documented by: Assessment/Plan I agree with the above and the following is a reflection of my independent history and physical exam. ASSESSMENT Acute Hypoxic Respiratory Failure Leukocytosis -suspected primarily steroid induced Anemia-chronic HTN HPL GERD MO Suspect ANGEL Anxiety/Depression Asthma Hypothyroidism PLAN -effusion is of unknown etiology at this point -thora today with studies ordered -continue Zosyn at this time -Trend WBC -wean steroids to 40 mg PO pred daily -has been weaned to 6 L nasal cannula -encouraged IS jeramy following thora -continue home meds for chronic medical problems -will need outpt PSG Inpatient E&M: 77644 Subs Hosp L2
[2020-04-12 14:02] LABS: Cytology, Body Fluid / CSF SEE PATHOLOGY REPORT
[2020-04-12 14:13] LABS: Pathologist Review Reviewed
[2020-04-12 14:15] LABS: Pathologist Review Reviewed
[2020-04-12] MEDS: 0.9% Saline Lock 10 ML Syringe IV (14:15)
--- NOTE | 2020-04-12 14:15 | RAD_ITS ---
STUDY: X-RAY CHEST REASON FOR EXAM: Female, 44 years old. S/p thorax TECHNIQUE: AP inspiration and expiration views COMPARISON: Comparison is made with prior examination dated 04/10/2020. FINDINGS: The patient is status post right thoracentesis. There is improved aeration of the right lung with mild residual pleural-parenchymal changes. No evidence of pneumothorax. RAD/Chest Insp/Exp 2 View IMPRESSION: No evidence of pneumothorax following the right thoracentesis. Mild residual pleural-parenchymal changes are seen at the right lung base. Electronically Signed: Nathan Manriquez, at 15:06 EDT , Service support ,
[2020-04-12 14:16] LABS: Pathologist Review Reviewed
[2020-04-12 14:23] LABS: Body Fluid Mononuclear WBC # 2.271 10^3/uL; Body Fluid Mononuclear WBC % 82.3 %; Body Fluid Polynuclear WBC # 0.489 10^3/uL; Body Fluid Polynuclear WBC % 17.7 %; Body Fluid Total Cells Counted 3.574 10^3/ul; Red Cell Count/Body Fluid 0.664 10^6/ul
[2020-04-12 14:55] LABS: Glucose, Body Fluid 104 mg/dL (40-70); LDH,Body Fluid 367 Units/l (Not Establ.); Protein, Body Fluid 4.6 g/dL (Not Establ.)
[2020-04-12 15:22] LABS: Appearance/Body Fluid TURBID; Auto B Fluid Analyzer BKGD Ct COUNTS W/IN LIMITS (W/IN LIMITS); Color/Body Fluid RED; Lymphocytes 50 %; Neutrophil (Segs) 20 %; Source- Body Fluid THORACENTESIS
[2020-04-12 15:23] LABS: Body Fluid QC Type(s) BF1Q; Macrophages 26 %; Mesothelial Cells 4 %
[2020-04-12] MEDS: Montelukast 10 MG Tablet PO (21:21)
[2020-04-12] MEDS: Pravastatin 20 MG Tablet PO (21:21)
[2020-04-13] VITALS (17 sets, daily range): BP systolic 114–153; BP diastolic 73–98; PULSE 79–120; RESP 12–22; TEMP 36.4–36.7; O2SAT 92–97
[2020-04-13] MEDS: Levothyroxine 50 MCG Tablet PO (05:35)
[2020-04-13 05:53] LABS: Hematocrit 36.6 % (37-47); Hemoglobin 10.5 g/dL (12.0-15.0); Mean Corp Hgb Conc 28.7 g/dL (32-36); Mean Corpuscular Hgb 27.6 pg (27.0-32.0); Mean Corpuscular Volume 96.1 fL (81-99); Mean Platelet Vol. 11.5 fl (6.2-12.0); POSITIVE COUNT YES; Platelet Count 289 K/mm3 (150-450); RBC Distribution Width CV 17.5 % (11.6-14.6); RBC Distribution Width SD 61.3 fl (35.1-43.9); Red Blood Count 3.81 M/mm3 (4.2-5.4)
[2020-04-13 05:59] LABS: Scan Indicated on CBC? Y/N YES- FLAGS NOTED; White Blood Count 35.7 K/mm3 (4.4-11.0)
[2020-04-13 06:13] LABS: Anion Gap 6 (5-15); BUN 23 mg/dL (7-18); BUN/Creat Ratio 33.8 RATIO (10-20); Calcium,Total 9.2 mg/dL (8.5-10.1); Chloride 106 mmol/L (98-107); Creatinine, Serum 0.68 mg/dL (0.55-1.02); EST Glomerular Filtration Rate 100 mL/min (>60); Est Glom Filt Rate - Afr Amer 120 mL/min (>60); Estimated Creatinine Clearance 110.33 ml/min; Glucose 82 mg/dL (74-106); Potassium 4.3 mmol/L (3.5-5.1); Sodium Level 138 mmol/L (136-145)
[2020-04-13 06:26] LABS: Differential Comment SCANNED
--- NOTE | 2020-04-13 07:03 | NURSING ---
2 rns tried starting an Iv and also had camp maintenance supervisor try but was unsuccessful.
[2020-04-13] MEDS: Ipratropium/Albuterol Sulfate 3 ML AMPUL.NEB INHALATION ×4 (07:20→22:55)
--- NOTE | 2020-04-13 08:41 | PN_ITS ---
Patient Problems: Active and Suspected Problems (Last Reviewed 11/19/17 @ 10:37 by Savannah Carmen) Asthma exacerbation (Acute) Pneumonia involving right lung (Acute) Right moderate large pleural effusion (Acute) Subjective: Patient did well overnight. Oxygenation has significantly improved compared to previous. Patient reported subjective improvement following thoracentesis. Patient is not reporting any pain at the intervention site. Patient does report cough with deep inhalation. No nausea or vomiting is been reported. Objective: Thoracentesis completed yesterday with 700 cc removed. Laboratory work-up is consistent with a lymphocytic exudate. Chest x-rays show improvement without complication. - Physical Exam Vitals/I&O's: Vital Signs Temp Pulse Resp BP Pulse Ox 36.6 C 99 19 H 143/98 H 95 04/13/20 02:57 04/13/20 07:20 04/13/20 07:20 04/13/20 02:57 04/13/20 07:55 Oxygen Flow Rate (L/min) [3] 5 Oxygen Flow Rate (L/min) [2] 5 Oxygen Flow Rate (L/min) [1 ( 7 Initial Baseline)] Oxygen Flow Rate (L/min) 4.5 Oxygen Delivery Method [3] Nasal Cannula Oxygen Delivery Method [2] Nasal Cannula Oxygen Delivery Method [1 ( Nasal Cannula Initial Baseline)] Oxygen Delivery Method Nasal Cannula Weight: 178.9 kg Body Mass Index (BMI) 58.4 Intake and Output for Last 24 Hours 04/11/20 04/12/20 04/13/20 23:59 23:59 23:59 Intake Total 1937.66 / 1937.66 2463.33 / 2463.33 50 / 50 Output Total 700 / 700 750 / 750 Balance 1237.66 / 1237.66 1713.33 / 1713.33 50 / 50 General: Alert, Oriented x3, Cooperative, No apparent distress, Well developed, Well nourished, - - Morbidly obese. HEENT: Atraumatic, PERRLA, EOMI, Normocephalic, - - No scleral icterus or injection noted Oral: Moist Mucosa, No Gingival or Mucosal Lesions/ Ulcerations Neck: Supple, No Nodes, Trachea Midline, - - Difficult to assess JVD secondary to body habitus Lungs: No rhonchi, No wheeze, No rales, Diminished, - - Better air exchange at the right base Cardiovascular: Regular rate, Regular Rhythm, Normal S1, Normal S2, No murmurs, No rub noted, No Gallop, - - Thoracentesis site is clean, dry and intact Abdomen: Bowel Sounds Present, Soft, Non Tender, Non-Distended, Obese Extremities: No clubbing, No cyanosis, No edema, Capillary Refill Less than 3 Seconds Skin: No rashes, No breakdown Musculoskeletal: No Tenderness to Palpation of Joints or Extremities Lymphatic: No Cervical, Supraclavicular, or Inguinal Adenopathy Neurological: Cranial nerves II-XII grossly intact, Neuro grossly intact, Motor Exam 5/5 strength throughout Psych/Mental Status: Alert and oriented to time, place, person, mood and affect Microbiology Past 72 Hours 04/12/20 13:59 Fluid - Thoracentesis Fluid Gram Stain - Final 04/11/20 08:00 Sputum, Expectorated/Coughed Gram Stain - Final 04/11/20 08:00 Sputum, Expectorated/Coughed Respiratory Culture - Preliminary Appears to be normal respiratory maria luisa. Further studies to follow. 04/10/20 18:15 Urine, Clean Catch Legionella Antigen - Final 04/10/20 18:15 Urine, Clean Catch Streptococcus pneumoniae Antigen (M - Final 04/10/20 10:21 Mucosa - Nasopharyngeal Respiratory Panel (PCR) - Final Laboratory Results 04/10/20 08:30: Diff Path Review Reviewed 04/11/20 05:50: Diff Path Review Reviewed 04/12/20 05:12: Diff Path Review Reviewed 04/12/20 13:59: Fluid Glucose 104 H, Fluid Total Protein 4.6, Fluid LDH 367 04/12/20 13:59: Fluid pH Pending 04/12/20 13:59: Fluid Source THORACENTESIS, Fluid Color RED, Fluid Appearance TURBID, Fluid WBC 2.760, Fluid RBC 0.664, Fluid Tot Cell Count 3.574 H, Fld Polynuclear WBCs # 0.489, Fld Polynuclear WBCs % 17.7, Fluid Mononuclear WBCs 2.271, Fld Mononuclear WBCs % 82.3, Fluid Neutrophils 20, Fluid Lymphocytes 50, Fluid Macrophages 26, Fld Mesothelial Cells 4, Fl Pathologist Comment May follow, Fluid Comment 2 SEE COMMENT 04/12/20 13:59: Miscellaneous Cytology Pending 04/13/20 05:42: WBC 35.7 H*, RBC 3.81 L, Hgb 10.5 L, Hct 36.6 L, MCV 96.1, MCH 27.6, MCHC 28.7 L, RDW Std Deviation 61.3 H, RDW Coeff of Ana M 17.5 H, Plt Count 289, MPV 11.5, Differential Comment SCANNED, Diff Path Review November [facility] 04/13/20 05:42: Sodium 138, Potassium 4.3, Chloride 106, Carbon Dioxide 26.0, Anion Gap 6, BUN 23 H, Creatinine 0.68, Estim Creat Clear Calc 110.33, Est GFR (MDRD) Af Amer 120, Est GFR (MDRD) Non-Af 100, BUN/Creatinine Ratio 33.8 H, Glucose 82, Calcium 9.2 Current Medications Acetaminophen (Tylenol) 650 mg PO Q6H PRN PRN PRN Reason: Pain Score 1-10/Temp > 100.7 F Al Hydroxide/Mg Hydroxide (Mylanta Ii) 30 ml PO Q6H PRN PRN PRN Reason: Gastric Burning Albuterol Sulfate (Ventolin Aerosols) 2.5 mg INHALATION Q2H PRN PRN PRN Reason: SOB/Wheezing Albuterol/Ipratropium (Duoneb) 3 ml INHALATION Q4H.RT [facility] Last Admin: 04/13/20 07:20 Dose: 3 ml Documented by: Bupropion HCl (Wellbutrin Xl) 150 mg PO DAILY [facility] Last Admin: 04/12/20 08:22 Dose: 150 mg Documented by: Guaifenesin (Mucinex) 1,200 mg PO BID [facility] Last Admin: 04/12/20 21:21 Dose: 1,200 mg Documented by: Piperacillin Sod/Tazobactam (Sod 3.375 gm/ Sodium Chloride) 50 mls @ 12.5 mls/hr IV Q8 [facility] Last Infusion: 04/13/20 01:21 Dose: Infused Documented by: Levothyroxine Sodium (Synthroid) 50 mcg PO DAILY@0600 [facility] Last Admin: 04/13/20 05:35 Dose: 50 mcg Documented by: Lisinopril (Zestril) 20 mg PO DAILY [facility] Last Admin: 04/12/20 08:23 Dose: 20 mg Documented by: Montelukast Sodium (Singulair) 10 mg PO QHS [facility] Last Admin: 04/12/20 21:21 Dose: 10 mg Documented by: Nitroglycerin (Nitrostat) 0.4 mg SUBLINGUAL Q5M PRN PRN Reason: CARDIAC/CHEST PAIN Pantoprazole Sodium (Protonix) 20 mg PO DAILY [facility] Last Admin: 04/12/20 08:22 Dose: 20 mg Documented by: Polyethylene Glycol (Miralax) 17 gm PO DAILY [facility] Last Admin: 04/12/20 08:22 Dose: Not Given Documented by: Pravastatin Sodium (Pravachol) 20 mg PO QHS [facility] Last Admin: 04/12/20 21:21 Dose: 20 mg Documented by: Prednisone () 40 mg PO DAILY@0800 [facility] Prochlorperazine Edisylate (Compazine Iv) 5 mg IV Q4H PRN PRN PRN Reason: Breakthrough Nausea/Vomiting Senna/Docusate Sodium (Senokot-S, Selene-Colace) 2 tablet PO BID PRN PRN PRN Reason: Constipation Sodium Chloride () 10 - 40 ml IV UD PRN PRN Reason: SALINE FLUSH Last Admin: 04/12/20 14:15 Dose: 10 ml Documented by: Clinical Impression(s) from Imaging Studies Thoracentesis Ultrasound 04/12/20 08:41 IMPRESSION: Ultrasound-guided right thoracentesis. Electronically Signed: Nathan Manriquez, at 14:38 EDT , Service support , Chest X-Ray 04/12/20 14:15 IMPRESSION: No evidence of pneumothorax following the right thoracentesis. Mild residual pleural-parenchymal changes are seen at the right lung base. Electronically Signed: Nathan Manriquez, at 15:06 EDT , Service support , Medical Necessity - Tobacco Use Smoking Status: Never smoker Tobacco Use: Non-smoker Assessment/Plan All Active Problems (Last Reviewed 11/19/17 @ 10:37 by Savannah Carmen) Asthma exacerbation (Acute) Pneumonia involving right lung (Acute) Right moderate large pleural effusion (Acute) Arthritis of knee, left (Acute) URI, acute (Acute) RECOMMENDATIONS: 1. Continue Zosyn as monotherapy. 2. Await culture and cytology thoracentesis 3. Continue scheduled bronchodilators. Okay to continue p.o. prednisone and wean over 12 to 14 days from my perspective 4. Wean supplemental oxygen to maintain saturations at or above 90%. Likely okay to discharge once off supplemental oxygen 5. Encourage incentive spirometer use and mobilize patient as tolerated. 6. Will likely require outpatient work-up for quantification clarification of lung function 7. If discharged, patient will need to follow-up in our office with nurse practitioner in 2 weeks and establish care with Dr. Escobar 8. Walking oximetry prior to discharge IMPRESSIONS: 1. Acute hypoxemic respiratory failure Unclear etiology of right lower lobe effusion. Patient does have a significant leukocytosis, but this may be secondary to steroid therapy. Patient has had multiple studies with no pulmonary embolism noted. Patient has a reported history of asthma, but this cannot be confirmed. Reasonable to continue steroids with described taper and bronchodilators for now. Thoracentesis is consistent with a lymphocytic exudate by LDH and protein criteria. This can be a sign of protracted infection or TB, malignancy or autoimmune etiology. Patient does not have any risk factors for TB, so this is unlikely. It will be important to follow-up on cytology and culture data. Continue to wean oxygen as tolerated. Patient would benefit from BiPAP therapy overnight as there is high clinical suspicion for concomitant obstructive sleep apnea. 2. Morbid obesity/GERD/hypertension/hyperlipidemia/hypothyroidism Complicates care, management, recovery and prognosis. Continue home medications as indicated. Inpatient E&M: [id number] [facility] L3
[2020-04-13] MEDS: guaiFENesin 1,200 MG Tablet 1200 MG PO ×2 (09:07→21:48)
[2020-04-13] MEDS: Pantoprazole Sodium 20 MG Tablet PO (09:07)
[2020-04-13] MEDS: buPROPion (XL) 150 MG TABLET.XL PO (09:08)
[2020-04-13] MEDS: Lisinopril 20 MG Tablet PO (09:08)
[2020-04-13] MEDS: predniSONE 20 MG Tablet 40 MG PO (09:10)
[2020-04-13 09:52] LABS: Mucous, Urine 0 SEEN /hpf (<or=2+)
[2020-04-13 09:54] LABS: Color, Urine Yellow (Yellow); Glucose, Dipstick Normal (Normal); Ketone-Dipstick Negative (Negative); Leukocyte Esterase-Dipstick 25 /ul (Negative); Nitrite-Dipstick Negative (Negative); Occult Blood-Urine 25 /ul (Negative); Protein-Dipstick Negative (Negative); Specific Gravity, Urine 1.015 (1.002-1.030); Urine Bilirubin Dipstick Negative (Negative); Urine Clarity Sl. Cloudy (Clear); Urine Urobilinogen 1 mg/dl (Normal)
[2020-04-13 10:00] LABS: Bacteria 1+ /hpf (None Seen); Red Blood Cells-Urine 0-5 SEEN /hpf (0-5); Squamous Epithelial Cells - UA 5-10 SEEN /hpf (5-10); White Blood Cells 0-5 SEEN /hpf (0-5)
[2020-04-13 10:57] LABS: Rheumatoid Factor < 10.0 IU/mL (<15)
[2020-04-13] MEDS: 0.9% Saline Lock 10 ML Syringe IV ×2 (11:28→21:48)
--- NOTE | 2020-04-13 12:06 | PN_ITS ---
<Geovanna Shen PONY EDGER - Last Filed: 04/13/20 12:11> Patient Problems: Active and Suspected Problems (Last Reviewed 11/19/17 @ 10:37 by Savannah raya) Asthma exacerbation (Acute) Pneumonia involving right lung (Acute) Right moderate large pleural effusion (Acute) Subjective: Patient seen and examined. Reports improvement in breathing. Remains on 4 L nasal cannula. Denies cough, fever, chills. Eager to return home. - Physical Exam Vitals/I&O's: Vital Signs Temp Pulse Resp BP Pulse Ox 97.9 F 120 H 12 138/94 H 96 04/13/20 08:46 04/13/20 08:46 04/13/20 08:52 04/13/20 08:46 04/13/20 08:46 Oxygen Flow Rate (L/min) [3] 5 Oxygen Flow Rate (L/min) [2] 5 Oxygen Flow Rate (L/min) [1 ( 7 Initial Baseline)] Oxygen Flow Rate (L/min) 4 Oxygen Delivery Method [3] Nasal Cannula Oxygen Delivery Method [2] Nasal Cannula Oxygen Delivery Method [1 ( Nasal Cannula Initial Baseline)] Oxygen Delivery Method Nasal Cannula Weight: 394 lb 6.511 oz Body Mass Index (BMI) 58.4 Intake and Output for Last 24 Hours 04/11/20 04/12/20 04/13/20 23:59 23:59 23:59 Intake Total 1937.66 / 1937.66 2463.33 / 2463.33 50 / 50 Output Total 700 / 700 750 / 750 Balance 1237.66 / 1237.66 1713.33 / 1713.33 50 / 50 General: Alert, Oriented x3, Cooperative HEENT: Atraumatic, PERRLA, EOMI, Normocephalic Neck: Supple, No JVD, Negative Carotid Bruits Lungs: Clear to auscultation, Diminished Cardiovascular: Regular rate Abdomen: Bowel Sounds Present, Soft, Non Tender, Non-Distended, Obese Extremities: No clubbing, No cyanosis, No edema, Capillary Refill Less than 3 Seconds Skin: No rashes, No breakdown Musculoskeletal: No Tenderness to Palpation of Joints or Extremities Neurological: Cranial nerves II-XII grossly intact, Neuro grossly intact Psych/Mental Status: Normal Affect, Appropriate Microbiology Past 72 Hours 04/12/20 13:59 Fluid - Thoracentesis Fluid Gram Stain - Final 04/12/20 13:59 Fluid - Thoracentesis Fluid Body Fluid Culture - Preliminary No growth-Final to follow 04/11/20 08:00 Sputum, Expectorated/Coughed Gram Stain - Final 04/11/20 08:00 Sputum, Expectorated/Coughed Respiratory Culture - Final Mixed normal respiratory maria luisa. No Streptococcus pneumoniae, beta-hemolytic Streptococcus or Staphylococcus aureus isolated. 04/10/20 18:15 Urine, Clean Catch Legionella Antigen - Final 04/10/20 18:15 Urine, Clean Catch Streptococcus pneumoniae Antigen (M - Final 04/10/20 10:21 Mucosa - Nasopharyngeal Respiratory Panel (PCR) - Final Laboratory Results 04/10/20 08:30: Diff Path Review Reviewed 04/11/20 05:50: Diff Path Review Reviewed 04/12/20 05:12: Diff Path Review Reviewed 04/12/20 13:59: Fluid Glucose 104 H, Fluid Total Protein 4.6, Fluid LDH 367 04/12/20 13:59: Fluid pH Pending 04/12/20 13:59: Fluid Source THORACENTESIS, Fluid Color RED, Fluid Appearance TURBID, Fluid WBC 2.760, Fluid RBC 0.664, Fluid Tot Cell Count 3.574 H, Fld Polynuclear WBCs # 0.489, Fld Polynuclear WBCs % 17.7, Fluid Mononuclear WBCs 2.271, Fld Mononuclear WBCs % 82.3, Fluid Neutrophils 20, Fluid Lymphocytes 50, Fluid Macrophages 26, Fld Mesothelial Cells 4, Fl Pathologist Comment May follow, Fluid Comment 2 SEE COMMENT 04/12/20 13:59: Miscellaneous Cytology Pending 04/13/20 05:42: WBC 35.7 H*, RBC 3.81 L, Hgb 10.5 L, Hct 36.6 L, MCV 96.1, MCH 2 7.6, MCHC 28.7 L, RDW Std Deviation 61.3 H, RDW Coeff of Ana M 17.5 H, Plt Count 289, MPV 11.5, Differential Comment SCANNED, Diff Path Review May foll 04/13/20 05:42: Sodium 138, Potassium 4.3, Chloride 106, Carbon Dioxide 26.0, Anion Gap 6, BUN 23 H, Creatinine 0.68, Estim Creat Clear Calc 110.33, Est GFR (MDRD) Af Amer 120, Est GFR (MDRD) Non-Af 100, BUN/Creatinine Ratio 33.8 H, Glucose 82, Calcium 9.2 04/13/20 09:40: Urine Color Yellow, Urine Clarity Sl. Cloudy, Urine pH 6.0, Ur Specific [place] 1.015, Urine Protein Negative, Urine Glucose (UA) Normal, Urine Ketones Negative, Urine Occult Blood 25 H, Urine Nitrite Negative, Urine Bilirubin Negative, Urine Urobilinogen 1 H, Ur Leukocyte Esterase 25 H, Urine RBC 0-5 SEEN, Urine WBC 0-5 SEEN, Ur Squamous Epith Cells 5-10 SEEN, Urine Bacteria 1+, Urine Mucus 0 SEEN 04/13/20 10:11: Rheumatoid Factor < 10.0 04/13/20 10:11: NADEEM Screen Pending, TAMIKO-1 Antibody Pending, SS-A/Ro IgG Antibody Pending, SS-B/La IgG Antibody Pending, Sm (Mcintyre) Antibody Pending, FOUNDATION ASSISTANT Antibody Pending, Scl-70 Scleroderma Ab Pending, Double Strand DNA Ab Pending, Centromere B Antibody Pending 04/13/20 10:11: c-ANCA Antibody Pending, p-ANCA Antibody Pending 04/13/20 10:11: Cycl Citrul Peptide IgG Pending Current Medications Acetaminophen (Tylenol) 650 mg PO Q6H PRN PRN PRN Reason: Pain Score 1-10/Temp > 100.7 F Al Hydroxide/Mg Hydroxide (Mylanta Ii) 30 ml PO Q6H PRN PRN PRN Reason: Gastric Burning Albuterol Sulfate (Ventolin Aerosols) 2.5 mg INHALATION Q2H PRN PRN PRN Reason: SOB/Wheezing Albuterol/Ipratropium (Duoneb) 3 ml INHALATION Q4H.RT [facility] Last Admin: 04/13/20 11:44 Dose: Not Given Documented by: Bupropion HCl (Wellbutrin Xl) 150 mg PO DAILY [facility] Last Admin: 04/13/20 09:08 Dose: 150 mg Documented by: Guaifenesin (Mucinex) 1,200 mg PO BID [facility] Last Admin: 04/13/20 09:07 Dose: 1,200 mg Documented by: Piperacillin Sod/Tazobactam (Sod 3.375 gm/ Sodium Chloride) 50 mls @ 12.5 mls/hr IV Q8 [facility] Last Admin: 04/13/20 11:27 Dose: 12.5 mls/hr Documented by: Levothyroxine Sodium (Synthroid) 50 mcg PO DAILY@0600 [facility] Last Admin: 04/13/20 05:35 Dose: 50 mcg Documented by: Lisinopril (Zestril) 20 mg PO DAILY [facility] Last Admin: 04/13/20 09:08 Dose: 20 mg Documented by: Montelukast Sodium (Singulair) 10 mg PO QHS [facility] Last Admin: 04/12/20 21:21 Dose: 10 mg Documented by: Nitroglycerin (Nitrostat) 0.4 mg SUBLINGUAL Q5M PRN PRN Reason: CARDIAC/CHEST PAIN Pantoprazole Sodium (Protonix) 20 mg PO DAILY [facility] Last Admin: 04/13/20 09:07 Dose: 20 mg Documented by: Polyethylene Glycol (Miralax) 17 gm PO DAILY [facility] Last Admin: 04/13/20 09:10 Dose: Not Given Documented by: Pravastatin Sodium (Pravachol) 20 mg PO QHS [facility] Last Admin: 04/12/20 21:21 Dose: 20 mg Documented by: Prednisone () 40 mg PO DAILY@0800 [facility] Last Admin: 04/13/20 09:10 Dose: 40 mg Documented by: Prochlorperazine Edisylate (Compazine Iv) 5 mg IV Q4H PRN PRN PRN Reason: Breakthrough Nausea/Vomiting Senna/Docusate Sodium (Senokot-S, Selene-Colace) 2 tablet PO BID PRN PRN PRN Reason: Constipation Sodium Chloride () 10 - 40 ml IV UD PRN PRN Reason: SALINE FLUSH Last Admin: 04/13/20 11:28 Dose: 20 ml Documented by: Medical Necessity - Tobacco Use Smoking Status: Never smoker Tobacco Use: Non-smoker Assessment/Plan All Active Problems (Last Reviewed 11/19/17 @ 10:37 by Savannah Carmen) Asthma exacerbation (Acute) Pneumonia involving right lung (Acute) Right moderate large pleural effusion (Acute) Arthritis of knee, left (Acute) URI, acute (Acute) 1. Acute hypoxic respiratory failure secondary to asthma exacerbation and right pleural effusion-pulmonary following. Suspect pleural effusion may be underlyi ng pneumonia versus autoimmune etiology versus malignancy. On IV Zosyn. Prednisone taper. Albuterol DuoNeb aerosols. Continue supplement oxygen to maintain O2 at or above 90%. Patient underwent ultrasound-guided thoracentesis with 750 cc fluid removal. Fluid consistent with lymphocytic exudate. Final cultures pending. Respiratory panel COVID negative. CTA negative for PE. Autoimmune work-up ordered. Will likely discharge home with supplemental oxygen. Walking pulse ox prior to discharge. Outpatient follow-up with pulmonary medicine in 2 weeks when stable for discharge. 2. Hypertension-stable, continue lisinopril. 3. Hyperlipidemia-continue statin. 4. GERD-continue PPI. 5. Morbid obesity-encouraged diet and lifestyle modifications. 6. Anxiety/depression-continue bupropion, escitalopram. 7. Suspected ANGEL-outpatient follow-up with pulmonary medicine as noted above. DVT prophylaxis-SCDs This patient was seen by KARLA Ash under the supervision of Dr. Shetty. <Kendal Shetty - Last Filed: 04/13/20 12:45> Subjective: Pt states that she feels much better today after that thora. Has been using IS. Now weaned to 3 L n/c. - Physical Exam Vitals/I&O's: Vital Signs Temp Pulse Resp BP Pulse Ox 97.9 F 120 H 12 138/94 H 96 04/13/20 08:46 04/13/20 08:46 04/13/20 08:52 04/13/20 08:46 04/13/20 08:46 Oxygen Flow Rate (L/min) [3] 5 Oxygen Flow Rate (L/min) [2] 5 Oxygen Flow Rate (L/min) [1 ( 7 Initial Baseline)] Oxygen Flow Rate (L/min) 4 Oxygen Delivery Method [3] Nasal Cannula Oxygen Delivery Method [2] Nasal Cannula Oxygen Delivery Method [1 ( Nasal Cannula Initial Baseline)] Oxygen Delivery Method Nasal Cannula Weight: 178.9 kg Body Mass Index (BMI) 58.4 Intake and Output for Last 24 Hours 04/11/20 04/12/20 04/13/20 23:59 23:59 23:59 Intake Total 1937.66 / 1937.66 2463.33 / 2463.33 50 / 50 Output Total 700 / 700 750 / 750 Balance 1237.66 / 1237.66 1713.33 / 1713.33 50 / 50 General: Alert, Oriented x3, Cooperative HEENT: Atraumatic, PERRLA, EOMI, Normocephalic Oral: Moist Mucosa, No Gingival or Mucosal Lesions/ Ulcerations Neck: Supple, No JVD, Negative Carotid Bruits Lungs: Clear to auscultation, No rhonchi, No wheeze, No rales, Diminished - Slightly in R base Cardiovascular: Regular rate, Regular Rhythm, Normal S1, Normal S2, No murmurs Abdomen: Bowel Sounds Present, Soft, Non Tender, Non-Distended, No Hepato- splenomegaly, Obese Extremities: No clubbing, No cyanosis, No edema, Capillary Refill Less than 3 Seconds, Peripheral Pulses Normal Skin: No rashes, No breakdown Musculoskeletal: No Tenderness to Palpation of Joints or Extremities Neurological: Cranial nerves II-XII grossly intact, Neuro grossly intact, Muscle tone normal, Coordination normal Psych/Mental Status: Normal Affect, Appropriate, Alert and oriented to time, place, person, mood and affect Microbiology Past 72 Hours 04/12/20 13:59 Fluid - Thoracentesis Fluid Gram Stain - Final 04/12/20 13:59 Fluid - Thoracentesis Fluid Body Fluid Culture - Preliminary No growth-Final to follow 04/11/20 08:00 Sputum, Expectorated/Coughed Gram Stain - Final 04/11/20 08:00 Sputum, Expectorated/Coughed Respiratory Culture - Final Mixed normal respiratory maria luisa. No Streptococcus pneumoniae, beta-hemolytic Streptococcus or Staphylococcus aureus isolated. 04/10/20 18:15 Urine, Clean Catch Legionella Antigen - Final 04/10/20 18:15 Urine, Clean Catch Streptococcus pneumoniae Antigen (M - Final 04/10/20 10:21 Mucosa - Nasopharyngeal Respiratory Panel (PCR) - Final Laboratory Results 04/10/20 08:30: Diff Path Review Reviewed 04/11/20 05:50: Diff Path Review Reviewed 04/12/20 05:12: Diff Path Review Reviewed 04/12/20 13:59: Fluid Glucose 104 H, Fluid Total Protein 4.6, Fluid LDH 367 04/12/20 13:59: Fluid pH Pending 04/12/20 13:59: Fluid Source THORACENTESIS, Fluid Color RED, Fluid Appearance TURBID, Fluid WBC 2.760, Fluid RBC 0.664, Fluid Tot Cell Count 3.574 H, Fld Polynuclear WBCs # 0.489, Fld Polynuclear WBCs % 17.7, Fluid Mononuclear WBCs 2.271, Fld Mononuclear WBCs % 82.3, Fluid Neutrophils 20, Fluid Lymphocytes 50, Fluid Macrophages 26, Fld Mesothelial Cells 4, Fl Pathologist Comment May follow, Fluid Comment 2 SEE COMMENT 04/12/20 13:59: Miscellaneous Cytology Pending 04/13/20 05:42: WBC 35.7 H*, RBC 3.81 L, Hgb 10.5 L, Hct 36.6 L, MCV 96.1, MCH 27.6, MCHC 28.7 L, RDW Std Deviation 61.3 H, RDW Coeff of Ana M 17.5 H, Plt Count 289, MPV 11.5, Differential Comment SCANNED, Diff Path Review May foll 04/13/20 05:42: Sodium 138, Potassium 4.3, Chloride 106, Carbon Dioxide 26.0, Anion Gap 6, BUN 23 H, Creatinine 0.68, Estim Creat Clear Calc 110.33, Est GFR (MDRD) Af Amer 120, Est GFR (MDRD) Non-Af 100, BUN/Creatinine Ratio 33.8 H, Glucose 82, Calcium 9.2 04/13/20 09:40: Urine Color Yellow, Urine Clarity Sl. Cloudy, Urine pH 6.0, Ur Specific [place] 1.015, Urine Protein Negative, Urine Glucose (UA) Normal, Urine Ketones Negative, Urine Occult Blood 25 H, Urine Nitrite Negative, Urine Bilirubin Negative, Urine Urobilinogen 1 H, Ur Leukocyte Esterase 25 H, Urine RBC 0-5 SEEN, Urine WBC 0-5 SEEN, Ur Squamous Epith Cells 5-10 SEEN, Urine Bacteria 1+, Urine Mucus 0 SEEN 04/13/20 10:11: Rheumatoid Factor < 10.0 04/13/20 10:11: NADEEM Screen Pending, TAMIKO-1 Antibody Pending, SS-A/Ro IgG Antibody Pending, SS-B/La IgG Antibody Pending, Sm (Mcintyre) Antibody Pending, FOUNDATION ASSISTANT Antibody Pending, Scl-70 Scleroderma Ab Pending, Double Strand DNA Ab Pending, Centromere B Antibody Pending 04/13/20 10:11: c-ANCA Antibody Pending, p-ANCA Antibody Pending 04/13/20 10:11: Cycl Citrul Peptide IgG Pending Current Medications Acetaminophen (Tylenol) 650 mg PO Q6H PRN PRN PRN Reason: Pain Score 1-10/Temp > 100.7 F Al Hydroxide/Mg Hydroxide (Mylanta Ii) 30 ml PO Q6H PRN PRN PRN Reason: Gastric Burning Albuterol Sulfate (Ventolin Aerosols) 2.5 mg INHALATION Q2H PRN PRN PRN Reason: SOB/Wheezing Albuterol/Ipratropium (Duoneb) 3 ml INHALATION Q4H.RT [facility] Last Admin: 04/13/20 11:44 Dose: Not Given Documented by: Bupropion HCl (Wellbutrin Xl) 150 mg PO DAILY [facility] Last Admin: 04/13/20 09:08 Dose: 150 mg Documented by: Guaifenesin (Mucinex) 1,200 mg PO BID [facility] Last Admin: 04/13/20 09:07 Dose: 1,200 mg Documented by: Piperacillin Sod/Tazobactam (Sod 3.375 gm/ Sodium Chloride) 50 mls @ 12.5 mls/hr IV Q8 [facility] Last Admin: 04/13/20 11:27 Dose: 12.5 mls/hr Documented by: Levothyroxine Sodium (Synthroid) 50 mcg PO DAILY@0600 [facility] Last Admin: 04/13/20 05:35 Dose: 50 mcg Documented by: Lisinopril (Zestril) 20 mg PO DAILY [facility] Last Admin: 04/13/20 09:08 Dose: 20 mg Documented by: Montelukast Sodium (Singulair) 10 mg PO QHS [facility] Last Admin: 04/12/20 21:21 Dose: 10 mg Documented by: Nitroglycerin (Nitrostat) 0.4 mg SUBLINGUAL Q5M PRN PRN Reason: CARDIAC/CHEST PAIN Pantoprazole Sodium (Protonix) 20 mg PO DAILY [facility] Last Admin: 04/13/20 09:07 Dose: 20 mg Documented by: Polyethylene Glycol (Miralax) 17 gm PO DAILY [facility] Last Admin: 04/13/20 09:10 Dose: Not Given Documented by: Pravastatin Sodium (Pravachol) 20 mg PO QHS [facility] Last Admin: 04/12/20 21:21 Dose: 20 mg Documented by: Prednisone () 40 mg PO DAILY@0800 [facility] Last Admin: 04/13/20 09:10 Dose: 40 mg Documented by: Prochlorperazine Edisylate (Compazine Iv) 5 mg IV Q4H PRN PRN PRN Reason: Breakthrough Nausea/Vomiting Senna/Docusate Sodium (Senokot-S, Selene-Colace) 2 tablet PO BID PRN PRN PRN Reason: Constipation Sodium Chloride () 10 - 40 ml IV UD PRN PRN Reason: SALINE FLUSH Last Admin: 04/13/20 11:28 Dose: 20 ml Documented by: Assessment/Plan I agree with the above and the following is a reflection of my independent history and physical exam. ASSESSMENT Acute Hypoxic Respiratory Failure Leukocytosis -suspected primarily steroid induced Pleural Effusion Anemia-chronic HTN HPL GERD MO Suspect ANGEL Anxiety/Depression Asthma Hypothyroidism PLAN -effusion remains of unknown etiology at this point -it was predominantly lymphocytic (parapneumonic vs Autoimmune vs malignant vs TB -GS with no organisms -repeat CXR in am to be sure that it is not reaccumulating -Send RF/NADEEM/Anti CCP/ANCA's today -check UA for blood -continue Zosyn at this time Day 3/7 -Trend WBC--> is now trending down -steroids to 40 mg PO pred daily--> taper as able -has been weaned to 3 L nasal cannula -encouraged IS jeramy following thora -continue home meds for chronic medical problems -will need outpt PSG Inpatient E&M: 93612 Subs Hosp L2
[2020-04-13 15:41] LABS: Pathologist Review Reviewed
--- NOTE | 2020-04-13 17:50 | NURSING ---
All documentation, patient care, and medication administration completed by SN Latrell, done under the supervision of this RN.
[2020-04-13] MEDS: Pravastatin 20 MG Tablet PO (21:48)
[2020-04-13] MEDS: Montelukast 10 MG Tablet PO (21:48)
[2020-04-14] VITALS (7 sets, daily range): BP systolic 124–138; BP diastolic 79–96; PULSE 100–117; RESP 18–20; TEMP 36.3–36.7; O2SAT 86–96
[2020-04-14] MEDS: Acetaminophen 325 MG Tablet 650 MG PO (04:02)
[2020-04-14] MEDS: Levothyroxine 50 MCG Tablet PO (05:39)
[2020-04-14] MEDS: 0.9% Saline Lock 10 ML Syringe IV (05:39)
--- NOTE | 2020-04-14 05:55 | RAD_ITS ---
STUDY: X-RAY CHEST REASON FOR EXAM: Female, 44 years old. Pleural effusion f/u -- thoracentesis on 04/12 TECHNIQUE: PA and lateral views of the chest. COMPARISON: Comparison is made with prior study dated 04/12/2020. FINDINGS: EKG electrodes are seen. Blunting of the right costo phrenic angle with the right basilar infiltrate and/or atelectasis. The pleural effusion as improved. Normal size heart. Normal mediastinum and pepper. Normal visualized pulmonary arteries. There is atherosclerotic tortuosity of the aortic arch and descending thoracic aorta. Normal visualized thoracic spine. Normal visualized ribs, clavicles, and shoulders. There is no demonstrated abnormality of the visualized soft tissue structures of the upper abdomen. RAD/Chest PA and Lateral IMPRESSION: Residual blunting of the right costophrenic angle with right basilar atelectasis and/or infiltration. Electronically Signed: Nathan Manriquez, at 10:35 EDT , Service support ,
[2020-04-14 06:04] LABS: Hematocrit 35.1 % (37-47); Hemoglobin 10.1 g/dL (12.0-15.0); Mean Corp Hgb Conc 28.8 g/dL (32-36); Mean Corpuscular Hgb 27.1 pg (27.0-32.0); Mean Corpuscular Volume 94.1 fL (81-99); Mean Platelet Vol. 11.5 fl (6.2-12.0); POSITIVE COUNT YES; Platelet Count 270 K/mm3 (150-450); RBC Distribution Width CV 17.6 % (11.6-14.6); RBC Distribution Width SD 59.4 fl (35.1-43.9); Red Blood Count 3.73 M/mm3 (4.2-5.4)
[2020-04-14 06:12] LABS: Scan Indicated on CBC? Y/N YES- FLAGS NOTED; White Blood Count 35.5 K/mm3 (4.4-11.0)
[2020-04-14 06:43] LABS: Differential Comment SCANNED
[2020-04-14] MEDS: Ipratropium/Albuterol Sulfate 3 ML AMPUL.NEB INHALATION (07:19)
[2020-04-14] MEDS: guaiFENesin 1,200 MG Tablet 1200 MG PO (08:28)
[2020-04-14] MEDS: Lisinopril 20 MG Tablet PO (08:28)
[2020-04-14] MEDS: buPROPion (XL) 150 MG TABLET.XL PO (08:28)
[2020-04-14] MEDS: predniSONE 20 MG Tablet 40 MG PO (08:28)
[2020-04-14] MEDS: Pantoprazole Sodium 20 MG Tablet PO (08:28)
--- NOTE | 2020-04-14 09:38 | DCINST_ITS ---
- Discharge Diagnoses Current Active Problems: Current Active and Chronic Problems (Last Reviewed 11/19/17 @ 10:37 by Savannah Carmen) Asthma exacerbation (Acute) Pneumonia involving right lung (Acute) Right moderate large pleural effusion (Acute) Hypertension (Chronic) Dyslipidemia (Chronic) Morbid obesity (Chronic) Anxiety and depression (Chronic) Hypothyroidism (Chronic) You will use the following diet at home:: No restrictions Your food should be the consistency of: Regular Your liquids should be the consistency of: Regular/Thin Discharge Activity: Return to Normal Activity, No Restrictions, May Drive Call your doctor if you observe: Fever of 101 or Higher, Shortness of breath, Swelling in the ankles, Chest pain Instructions: Thoracentesis Allergies/Adverse Reactions: Allergies aspirin Allergy (Severe, Verified 04/10/20 07:47) Unknown Medications to take at Discharge escitalopram oxalate 20 mg tablet 20 mg PO QHS 30 Days #30 09/25/17 lisinopril 20 mg tablet 20 mg PO DAILY 30 Days #30 09/25/17 montelukast 10 mg tablet 10 mg PO QHS PRN 09/25/17 omeprazole 20 mg capsule,delayed release 20 mg PO QHS 30 Days #30 09/25/17 pravastatin 20 mg tablet 20 mg PO DAILY 30 Days #30 09/25/17 Bupropion HCl [Bupropion Xl] 150 mg PO DAILY 10/15/19 Levothyroxine [Synthroid] 50 mcg PO DAILY 10/15/19 Albuterol Sulfate [Albuterol Sulfate HFA] 2 puff IH Q4H PRN PRN 04/10/20 Fluticasone Propionate [Flovent Hfa] 2 puff IH BID 04/10/20 Polyethylene Glycol 3350 [Miralax] 17 gm PO DAILY packet 04/14/20 levoFLOXacin tablet [Levaquin tablet] 750 mg PO DAILY #3 tab 04/14/20 predniSONE tablet 10 mg PO DAILY@0800 #22 tab 04/14/20 The following prescriptions were given: levoFLOXacin tablet [Levaquin tablet] 750 mg PO DAILY #3 tab Transmission Status: Pending to [facility] [id number] predniSONE tablet 10 mg PO DAILY@0800 #22 tab Transmission Status: Received by [facility] [id number] Primary Care Physician: Luca Flores MD [Primary Care Provider] - Please follow up with your Primary Care Physician in: 1-2 weeks Test Results: Test results from this visit will be discussed in further detail at your follow- up appointment, if applicable. Please Follow Up With: Guru Tom MD When: as directed
--- NOTE | 2020-04-14 09:39 | CASEMGMT ---
Pt does qualify for home oxygen at this time and pt states no preference for DME company at this time. Pt states 'whoevers in network is fine'. Referral/script faxed to [facility] at this time and call to Cate at [facility] to notify of referral at this time, voices understanding. Pt voices no further questions/concerns/needs at this time. SStcristine VINSON CM
--- NOTE | 2020-04-14 09:40 | PCM.DC.SUM ---
Discharge Date and Diagnosis - Problem List Patient Problems: Active and Suspected Problems (Last Reviewed 11/19/17 @ 10:37 by Savannah Carmen) Asthma exacerbation (Acute) Pneumonia involving right lung (Acute) Right moderate large pleural effusion (Acute) Date of Admission: 04/10/20 Date of Discharge: 04/14/20 - Primary Discharge Diagnosis Acute Problems: Active Problems (Last Reviewed 11/19/17 @ 10:37 by Savannah Carmen) Asthma exacerbation (Acute) Pneumonia involving right lung (Acute) Right moderate large pleural effusion (Acute) - Secondary Discharge Diagnosis Chronic Problems: Chronic Problems (Last Reviewed 11/19/17 @ 10:37 by Savannah Carmen) Hypertension (Chronic) Dyslipidemia (Chronic) Morbid obesity (Chronic) Anxiety and depression (Chronic) Hypothyroidism (Chronic) Hospital Course and Treatment Imaging Results: STUDY: CTA CHEST REASON FOR EXAM: Female, 44 years old. Increased SOB, tachycardia, asthma, hypertension. VERY LG PATIENT RADIATION DOSAGE (If Supplied By Facility): CTDIvol = ( 21.43 ) mGy, DLP = ( 813.61 ) mGycm TECHNIQUE: The examination was performed with the intravenous administration of IV 100mL Isovue-370. Post-processing of the angiographic images was performed, with multiplanar reformation and 3D reconstruction. Individualized dose optimization techniques were used for this CT. COMPARISON: None. FINDINGS: There is limited enhancement of the main pulmonary artery and right and left pulmonary arteries. There is limited enhancement of the bilateral peripheral pulmonary arteries. There is no demonstrated definite central pulmonary embolism. Suboptimal evaluation of the peripheral branches. Normal thoracic aorta and visualized great vessels. There is no demonstrated aortic dissection. Normal heart and pericardium. No evidence of hilar or mediastinal adenopathy. Enlargement of the thyroid gland extending the thoracic inlet with small nodules. Normal hilar regions. Normal visualized trachea and bronchi. The lungs are under expanded. Right upper lobe infiltrate likely due to pneumonia. Infiltrate in the superior segment of the right lower lobe. Moderate right pleural effusion. Trace of left pleural effusion. Normal chest wall structures. The osseous structures and straight mild increased kyphosis and mild degenerative changes. The visualized upper abdomen demonstrate 3.4 cm mass in the right adrenal gland consistent with adenoma unchanged since prior examination from 2009. CT/CTA Chest W/WO Contrast IMPRESSION: 1. Limited examination due to suboptimal enhancement. 2. No demonstrated central pulmonary embolism. Suboptimal evaluation of the peripheral branches. 3. Right upper and lower lobes infiltrates likely due to pneumonia. 4. Moderate right pleural effusion and trace of left pleural effusion.. 5. Right adrenal adenoma. PROCEDURE: ULTRASOUND GUIDED THORACENTESIS. DATE: 04/12/2020. INDICATION: Female, 44 years old. Right pleural effusion PHYSICIAN: Nathan Manriquez M.D. PROCEDURE: The risks, benefits, and alternatives to the procedure were explained to the patient. The specific risks of bleeding, infection, and pneumothorax requiring chest tube insertion were discussed and accepted. Written informed consent was obtained. Ultrasonographic evaluation of the right lower pleural space was carried out. An adequate pocket was identified. The patient was placed in the sitting, upright position. The overlying skin was prepped and draped in sterile fashion. 1% lidocaine was administered subcutaneously for local anesthesia. Under ultrasound guidance, a 5 Kazakh thoracentesis needle/catheter system was advanced into the right posterior lower pleural fluid collection. Approximately 700 mL of bloody fluid was drained. The catheter was removed, and a sterile dressing was applied. A specimen was collected and sent to the laboratory for analysis, as requested by the referring clinician. The patient tolerated the procedure well. A chest x-ray was ordered. Operations: None Procedures: Thoracentesis Summary of Care Provided: Ms Peter is a 44 year old F who presented to the ED at [facility] on 04/10/2020 with shortness of breath and a cough productive of sputum for 3 days. 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 She stated that she had been tested multiple times for COVID-19 with the last time being 3 days prior to admission and all tests were negative. She has history of asthma and gets mild flare-ups in the fall 2/2 allergies, but she has not been admitted for asthma exacerbation for last 5 years. She is morbidly obese with BMI 56.9 and gets short of breath normally on moderate exertion but on presentation she indicated that the 3 days prior to coming in she was short of breath even walking few steps within a room. She denied fever or chills. She did not know about characteristics of his sputum but denied hemoptysis. In ED on admission her vitals were as follows heart rate 125, blood pressure 158/92 respiratory rate 22 pulse ox 92% on 3 L of oxygen. Basic blood work in ER shows leukocytosis 21.6 thousand with neutrophil 83%, lymphocytes 10.4%. BNP 94 troponin negative, BMP within normal limit. She had chest x-ray and CTA chest which showed no central pulmonary embolism, right arm and upper lobar infiltrates, consolidation and moderate right pleural effusion with trace left pleural effusion. EKG sinus tachycardia at 116 bpm. QTC 442 ms. She was given IV Solu-Medrol, Levaquin, DuoNeb and was admitted. She was placed on IV steroids and Zosyn and pulmonary was consulted for evaluation. Pulmonary recommended a repeat CTA given the incompleteness of the initial CTA and her sig d-dimer elevation to > 20. The repeat was neg as well but a significant L sided effusion was noted and the pt was sent for a thoracentesis. Thora yielded 700cc of bloody fluid and Light's criteria resulted in possible exudative effusion. After her thoracentesis we were able to wean her O2 from 7 L HF to 2 L nasal cannula and on the day of d/c she desaturated to 86% on RA and was placed on 2 L nasal cannula. Sats remained stable on 2 L at rest and with ambulation. She was discharged with 3 more days of ABX therapy (Levaquin) and a prednisone taper. Repeat CXR was done on the day of d/c and her film remained stable to slightly improved. The exact etiolgy for her effusion is unknown. Cx were neg. pt is TB tested frequently with her job and has not tested +, an autoimmune workup was initiated with (RF,NADEEM,ANCA, Anti CCP ab) and was pending at d/c. Pt is to f/u with her PCP in 1 week for hospital f/u and will need a repeat CBC after her steroids are completed as her white count was still > 40013 at d/c but had trended down some with the tapering of steroids. She was stable at d/c and will be able to go back to work on 04/19/2020. Patient Problems: Active and Suspected Problems (Last Reviewed 11/19/17 @ 10:37 by Savannah Carmen) Asthma exacerbation (Acute) Pneumonia involving right lung (Acute) Right moderate large pleural effusion (Acute) Subjective: Pt states that she is feeling so much better and is breathing a lot easier. Dropped to 86% on RA but stays >92 with 2 L at rest and with ambulation. Needs work release slip. - Physical Exam Vitals/I&O's: Vital Signs Temp Pulse Resp BP Pulse Ox 97.6 F L 115 H 18 125/79 H 86 04/14/20 08:20 04/14/20 08:20 04/14/20 08:20 04/14/20 08:20 04/14/20 08:20 Oxygen Flow Rate (L/min) [3] 5 Oxygen Flow Rate (L/min) [2] 5 Oxygen Flow Rate (L/min) [1 ( 7 Initial Baseline)] Oxygen Flow Rate (L/min) [ 2 AMBULATION with Oxygen] Oxygen Flow Rate (L/min) 2 Oxygen Delivery Method [3] Nasal Cannula Oxygen Delivery Method [2] Nasal Cannula Oxygen Delivery Method [1 ( Nasal Cannula Initial Baseline)] Oxygen Delivery Method Nasal Cannula Weight: 179.7 kg Body Mass Index (BMI) 58.4 Intake and Output for Last 24 Hours 04/12/20 04/13/20 04/14/20 23:59 23:59 23:59 Intake Total 2463.33 / 2463.33 160 / 160 170 / 170 Output Total 750 / 750 Balance 1713.33 / 1713.33 160 / 160 170 / 170 General: Alert, Oriented x3, Cooperative, No apparent distress, Well developed, Well nourished, - - obese WF sitting up in a chair, calm and appears well HEENT: Atraumatic, PERRLA, EOMI, Normocephalic Oral: - - no thrush, mallampati 3 Neck: Supple, No JVD, Trachea Midline, Thyroid Normal Size and Texture Lungs: Clear to auscultation, No rhonchi, No wheeze, No rales, Diminished - slightly diminished at R base Cardiovascular: Regular rate, Regular Rhythm, Normal S1, Normal S2, No murmurs, No Ectopic Activity, No rub noted, No Gallop Abdomen: Bowel Sounds Present, Soft, Non Tender, Non-Distended, No Hepato-splenomegaly, Obese, No hernias noted Extremities: No clubbing, No cyanosis, No edema, Capillary Refill Less than 3 Seconds, Peripheral Pulses Normal Skin: No rashes, No breakdown Musculoskeletal: No Tenderness to Palpation of Joints or Extremities, No Muscle Wasting Lymphatic: No Cervical, Supraclavicular, or Inguinal Adenopathy Neurological: Cranial nerves II-XII grossly intact, Neuro grossly intact, Motor Exam 5/5 strength throughout, Muscle tone normal, Coordination normal Psych/Mental Status: Normal Affect, Appropriate, Alert and oriented to time, place, person, mood and affect Microbiology Past 72 Hours 04/12/20 13:59 Fluid - Thoracentesis Fluid Gram Stain - Final 04/12/20 13:59 Fluid - Thoracentesis Fluid Body Fluid Culture - Preliminary No growth-Final to follow 04/12/20 13:59 Fluid - Thoracentesis Fluid Anaerobic Culture - Preliminary No growth in 48 hours. 04/11/20 08:00 Sputum, Expectorated/Coughed Gram Stain - Final 04/11/20 08:00 Sputum, Expectorated/Coughed Respiratory Culture - Final Mixed normal respiratory maria luisa. No Streptococcus pneumoniae, beta-hemolytic Streptococcus or Staphylococcus aureus isolated. Laboratory Results 04/13/20 05:42: Diff Path Review Reviewed 04/13/20 09:40: Urine Color Yellow, Urine Clarity Sl. Cloudy, Urine pH 6.0, Ur Specific Mcdavid 1.015, Urine Protein Negative, Urine Glucose (UA) Normal, Urine Ketones Negative, Urine Occult Blood 25 H, Urine Nitrite Negative, Urine Bilirubin Negative, Urine Urobilinogen 1 H, Ur Leukocyte Esterase 25 H, Urine RBC 0-5 SEEN, Urine WBC 0-5 SEEN, Ur Squamous Epith Cells 5-10 SEEN, Urine Bacteria 1+, Urine Mucus 0 SEEN 04/13/20 10:11: Rheumatoid Factor < 10.0 04/13/20 10:11: NADEEM Screen Pending, TAMIKO-1 Antibody Pending, SS-A/Ro IgG Antibody Pending, SS-B/La IgG Antibody Pending, Sm (Mcintyre) Antibody Pending, DATA NETWORK ARCHITECT Antibody Pending, Scl-70 Scleroderma Ab Pending, Double Strand DNA Ab Pending, Centromere B Antibody Pending 04/13/20 10:11: c-ANCA Antibody Pending, p-ANCA Antibody Pending 04/13/20 10:11: Cycl Citrul Peptide IgG Pending 04/14/20 05:26: WBC 35.5 H*, RBC 3.73 L, Hgb 10.1 L, Hct 35.1 L, MCV 94.1, MCH 27.1, MCHC 28.8 L, RDW Std Deviation 59.4 H, RDW Coeff of Ana M 17.6 H, Plt Count 270, MPV 11.5, Differential Comment SCANNED, Diff Path Review May foll Current Medications Acetaminophen (Tylenol) 650 mg PO Q6H PRN PRN PRN Reason: Pain Score 1-10/Temp > 100.7 F Last Admin: 04/14/20 04:02 Dose: 650 mg Documented by: Al Hydroxide/Mg Hydroxide (Mylanta Ii) 30 ml PO Q6H PRN PRN PRN Reason: Gastric Burning Albuterol Sulfate (Ventolin Aerosols) 2.5 mg INHALATION Q2H PRN PRN PRN Reason: SOB/Wheezing Albuterol/Ipratropium (Duoneb) 3 ml INHALATION Q4H.RT [facility] Last Admin: 04/14/20 07:19 Dose: 3 ml Documented by: Bupropion HCl (Wellbutrin Xl) 150 mg PO DAILY [facility] Last Admin: 04/14/20 08:28 Dose: 150 mg Documented by: Guaifenesin (Mucinex) 1,200 mg PO BID [facility] Last Admin: 04/14/20 08:28 Dose: 1,200 mg Documented by: Piperacillin Sod/Tazobactam (Sod 3.375 gm/ Sodium Chloride) 50 mls @ 12.5 mls/hr IV Q8 [facility] Last Admin: 04/14/20 05:39 Dose: 12.5 mls/hr Documented by: Levothyroxine Sodium (Synthroid) 50 mcg PO DAILY@0600 [facility] Last Admin: 04/14/20 05:39 Dose: 50 mcg Documented by: Lisinopril (Zestril) 20 mg PO DAILY [facility] Last Admin: 04/14/20 08:28 Dose: 20 mg Documented by: Montelukast Sodium (Singulair) 10 mg PO QHS [facility] Last Admin: 04/13/20 21:48 Dose: 10 mg Documented by: Nitroglycerin (Nitrostat) 0.4 mg SUBLINGUAL Q5M PRN PRN Reason: CARDIAC/CHEST PAIN Pantoprazole Sodium (Protonix) 20 mg PO DAILY [facility] Last Admin: 04/14/20 08:28 Dose: 20 mg Documented by: Polyethylene Glycol (Miralax) 17 gm PO DAILY [facility] Last Admin: 04/14/20 08:27 Dose: Not Given Documented by: Pravastatin Sodium (Pravachol) 20 mg PO QHS [facility] Last Admin: 04/13/20 21:48 Dose: 20 mg Documented by: Prednisone () 40 mg PO DAILY@0800 [facility] Last Admin: 04/14/20 08:28 Dose: 40 mg Documented by: Prochlorperazine Edisylate (Compazine Iv) 5 mg IV Q4H PRN PRN PRN Reason: Breakthrough Nausea/Vomiting Senna/Docusate Sodium (Senokot-S, Selene-Colace) 2 tablet PO BID PRN PRN PRN Reason: Constipation Sodium Chloride () 10 - 40 ml IV UD PRN PRN Reason: SALINE FLUSH Last Admin: 04/14/20 05:39 Dose: 10 ml Documented by: Discharge Activity: Return to Normal Activity, No Restrictions, May Drive Call your doctor if you observe: Fever of 101 or Higher, Shortness of breath, Swelling in the ankles, Chest pain Home Medications: Medications to take at Discharge escitalopram oxalate 20 mg tablet 20 mg PO QHS 30 Days #30 09/25/17 lisinopril 20 mg tablet 20 mg PO DAILY 30 Days #09/25/17 montelukast 10 mg tablet 10 mg PO QHS PRN 09/25/17 omeprazole 20 mg capsule,delayed release 20 mg PO QHS 30 Days #09/25/17 pravastatin 20 mg tablet 20 mg PO DAILY 30 Days #30 09/25/17 Bupropion HCl [Bupropion Xl] 150 mg PO DAILY 10/15/19 Levothyroxine [Synthroid] 50 mcg PO DAILY 10/15/19 Albuterol Sulfate [Albuterol Sulfate HFA] 2 puff IH Q4H PRN PRN 04/10/20 Fluticasone Propionate [Flovent Hfa] 2 puff IH BID 04/10/20 Polyethylene Glycol 3350 [Miralax] 17 gm PO DAILY packet 04/14/20 levoFLOXacin tablet [Levaquin tablet] 750 mg PO DAILY #3 tab 04/14/20 predniSONE tablet 10 mg PO DAILY@0800 #22 tab 04/14/20 Following Prescriptions Were Given to Patient: levoFLOXacin tablet [Levaquin tablet] 750 mg PO DAILY #3 tab Transmission Status: Pending to [facility] [id number] predniSONE tablet 10 mg PO DAILY@0800 #22 tab Transmission Status: Received by [facility] [id number] Primary Care Physician: Luca Flores MD [Primary Care Provider] - Please follow up with your Primary Care Physician in: 1-2 weeks Please Follow Up With: Guru Tom MD When: as directed Patient Instructions: Thoracentesis Medical Necessity - Tobacco Use Smoking Status: Never smoker Tobacco Use: Non-smoker Meaningful Use Info Meaningful Use Diagnoses (Choose all that apply): None applicable Inpatient E&M: 08714 [facility]
--- NOTE | 2020-04-14 09:49 | PCA ---
Patient states she will make own appointments.
--- NOTE | 2020-04-14 10:22 | PCM.PN.PUL ---
Patient Problems: Active and Suspected Problems (Last Reviewed 11/19/17 @ 10:37 by Savannah Carmen) Asthma exacerbation (Acute) Pneumonia involving right lung (Acute) Right moderate large pleural effusion (Acute) Subjective: Patient doing well. Patient still requiring minimal nasal cannula oxygen, but much improved compared to previous. Patient denies any chest pain and feels her shortness of breath is significantly improved. Patient states that she has ordered a pulse oximeter and that will arrive today. - Physical Exam Vitals/I&O's: Vital Signs Temp Pulse Resp BP Pulse Ox 36.4 C L 115 H 18 125/79 H 86 04/14/20 08:20 04/14/20 08:20 04/14/20 08:20 04/14/20 08:20 04/14/20 08:20 Oxygen Flow Rate (L/min) [3] 5 Oxygen Flow Rate (L/min) [2] 5 Oxygen Flow Rate (L/min) [1 ( 7 Initial Baseline)] Oxygen Flow Rate (L/min) [ 2 AMBULATION with Oxygen] Oxygen Flow Rate (L/min) 2 Oxygen Delivery Method [3] Nasal Cannula Oxygen Delivery Method [2] Nasal Cannula Oxygen Delivery Method [1 ( Nasal Cannula Initial Baseline)] Oxygen Delivery Method Nasal Cannula Weight: 179.7 kg Body Mass Index (BMI) 58.4 Intake and Output for Last 24 Hours 04/12/20 04/13/20 04/14/20 23:59 23:59 23:59 Intake Total 2463.33 / 2463.33 160 / 160 170 / 170 Output Total 750 / 750 Balance 1713.33 / 1713.33 160 / 160 170 / 170 General: Alert, Oriented x3, Cooperative, No apparent distress, Well developed, Well nourished, - - Morbidly obese. Speaking in full sentences. HEENT: Atraumatic, PERRLA, EOMI, Normocephalic, - - No scleral icterus or injection noted Oral: Moist Mucosa, No Gingival or Mucosal Lesions/ Ulcerations Neck: Supple, No Nodes, Trachea Midline, - - Unable to assess JVD secondary to body habitus Lungs: No rhonchi, No wheeze, No rales, Diminished, - - Symmetric expansion. Cardiovascular: Normal S1, Normal S2, No murmurs, No rub noted, No Gallop, Tachycardic Abdomen: Bowel Sounds Present, Soft, Non Tender, Non-Distended, Obese Extremities: No clubbing, No cyanosis, Edema Skin: - - No change compared to previous Musculoskeletal: No Tenderness to Palpation of Joints or Extremities Lymphatic: No Cervical, Supraclavicular, or Inguinal Adenopathy Neurological: Cranial nerves II-XII grossly intact, Neuro grossly intact, Motor Exam 5/5 strength throughout Psych/Mental Status: Alert and oriented to time, place, person, mood and affect Microbiology Past 72 Hours 04/12/20 13:59 Fluid - Thoracentesis Fluid Gram Stain - Final 04/12/20 13:59 Fluid - Thoracentesis Fluid Body Fluid Culture - Preliminary No growth-Final to follow 04/12/20 13:59 Fluid - Thoracentesis Fluid Anaerobic Culture - Preliminary No growth in 48 hours. 04/11/20 08:00 Sputum, Expectorated/Coughed Gram Stain - Final 04/11/20 08:00 Sputum, Expectorated/Coughed Respiratory Culture - Final Mixed normal respiratory maria luisa. No Streptococcus pneumoniae, beta-hemolytic Streptococcus or Staphylococcus aureus isolated. Laboratory Results 04/13/20 05:42: Diff Path Review Reviewed 04/13/20 10:11: Rheumatoid Factor < 10.0 04/13/20 10:11: NADEEM Screen Pending, TAMIKO-1 Antibody Pending, SS-A/Ro IgG Antibody Pending, SS-B/La IgG Antibody Pending, Sm (Mcintyre) Antibody Pending, INTEGRATION PROJECT MANAGER Antibody Pending, Scl-70 Scleroderma Ab Pending, Double Strand DNA Ab Pending, Centromere B Antibody Pending 04/13/20 10:11: c-ANCA Antibody Pending, p-ANCA Antibody Pending 04/13/20 10:11: Cycl Citrul Peptide IgG Pending 04/14/20 05:26: WBC 35.5 H*, RBC 3.73 L, Hgb 10.1 L, Hct 35.1 L, MCV 94.1, MCH 27.1, MCHC 28.8 L, RDW Std Deviation 59.4 H, RDW Coeff of Ana M 17.6 H, Plt Count 270, MPV 11.5, Differential Comment SCANNED, Diff Path Review May foll Current Medications Acetaminophen (Tylenol) 650 mg PO Q6H PRN PRN PRN Reason: Pain Score 1-10/Temp > 100.7 F Last Admin: 04/14/20 04:02 Dose: 650 mg Documented by: Al Hydroxide/Mg Hydroxide (Mylanta Ii) 30 ml PO Q6H PRN PRN PRN Reason: Gastric Burning Albuterol Sulfate (Ventolin Aerosols) 2.5 mg INHALATION Q2H PRN PRN PRN Reason: SOB/Wheezing Albuterol/Ipratropium (Duoneb) 3 ml INHALATION Q4H.RT [facility] Last Admin: 04/14/20 07:19 Dose: 3 ml Documented by: Bupropion HCl (Wellbutrin Xl) 150 mg PO DAILY [facility] Last Admin: 04/14/20 08:28 Dose: 150 mg Documented by: Guaifenesin (Mucinex) 1,200 mg PO BID [facility] Last Admin: 04/14/20 08:28 Dose: 1,200 mg Documented by: Piperacillin Sod/Tazobactam (Sod 3.375 gm/ Sodium Chloride) 50 mls @ 12.5 mls/hr IV Q8 [facility] Last Admin: 04/14/20 05:39 Dose: 12.5 mls/hr Documented by: Levothyroxine Sodium (Synthroid) 50 mcg PO DAILY@0600 [facility] Last Admin: 04/14/20 05:39 Dose: 50 mcg Documented by: Lisinopril (Zestril) 20 mg PO DAILY [facility] Last Admin: 04/14/20 08:28 Dose: 20 mg Documented by: Montelukast Sodium (Singulair) 10 mg PO QHS [facility] Last Admin: 04/13/20 21:48 Dose: 10 mg Documented by: Nitroglycerin (Nitrostat) 0.4 mg SUBLINGUAL Q5M PRN PRN Reason: CARDIAC/CHEST PAIN Pantoprazole Sodium (Protonix) 20 mg PO DAILY [facility] Last Admin: 04/14/20 08:28 Dose: 20 mg Documented by: Polyethylene Glycol (Miralax) 17 gm PO DAILY [facility] Last Admin: 04/14/20 08:27 Dose: Not Given Documented by: Pravastatin Sodium (Pravachol) 20 mg PO QHS [facility] Last Admin: 04/13/20 21:48 Dose: 20 mg Documented by: Prednisone () 40 mg PO DAILY@0800 [facility] Last Admin: 04/14/20 08:28 Dose: 40 mg Documented by: Prochlorperazine Edisylate (Compazine Iv) 5 mg IV Q4H PRN PRN PRN Reason: Breakthrough Nausea/Vomiting Senna/Docusate Sodium (Senokot-S, Selene-Colace) 2 tablet PO BID PRN PRN PRN Reason: Constipation Sodium Chloride () 10 - 40 ml IV UD PRN PRN Reason: SALINE FLUSH Last Admin: 04/14/20 05:39 Dose: 10 ml Documented by: Medical Necessity - Tobacco Use Smoking Status: Never smoker Tobacco Use: Non-smoker Assessment/Plan All Active Problems (Last Reviewed 11/19/17 @ 10:37 by Savannah Carmen) Asthma exacerbation (Acute) Pneumonia involving right lung (Acute) Right moderate large pleural effusion (Acute) Arthritis of knee, left (Acute) URI, acute (Acute) RECOMMENDATIONS: 1. Evaluate for supplemental oxygen on discharge 2. Await culture, autoimmune work-up and cytology thoracentesis 3. Continue scheduled bronchodilators. Okay to continue p.o. prednisone and wean over 12 to 14 days from my perspective 4. Wean supplemental oxygen to maintain saturations at or above 90%. Likely okay to discharge once off supplemental oxygen 5. Encourage incentive spirometer use and mobilize patient as tolerated. 6. Will likely require outpatient work-up for quantification clarification of lung function 7. If discharged, patient will need to follow-up in our office with nurse practitioner in 2 weeks and establish care with Dr. Escobar 8. Trained on appropriate use of supplemental oxygen IMPRESSIONS: 1. Acute hypoxemic respiratory failure Unclear etiology of right lower lobe effusion. Patient does have a significant leukocytosis, but this may be secondary to steroid therapy. Patient has had multiple studies with no pulmonary embolism noted. Patient has a reported history of asthma, but this cannot be confirmed. Reasonable to continue steroids with described taper and bronchodilators for now. Thoracentesis is consistent with a lymphocytic exudate by LDH and protein criteria. This can be a sign of protracted infection or TB, malignancy or autoimmune etiology. Patient does not have any risk factors for TB, so this is unlikely. It will be important to follow-up on cytology, autoimmune work-up and culture data. Continue to wean oxygen as tolerated. Patient would likely benefit from BiPAP therapy overnight as there is high clinical suspicion for concomitant obstructive sleep apnea. 2. Morbid obesity/GERD/hypertension/hyperlipidemia/hypothyroidism Complicates care, management, recovery and prognosis. Continue home medications as indicated. Inpatient E&M: 82947 Subs Hosp L2
--- NOTE | 2020-04-14 10:37 | PHA.DC.MC ---
Pharmacy Service has performed discharge medication reconciliation and counseling for this patient. 1. LEVOFLOXACIN 750MG PO DAILY X 3 DAYS 2. PREDNISONE 40MG PO DAILY FOR 1 DAY, THEN 30MG X 3DAYS, THEN 20MG X 3 DAYS, THEN 10MG X 3DAYS The patient's discharge medication list was reviewed for discrepancies and discrepancies were resolved. Home Medications escitalopram oxalate 20 mg tablet 20 mg PO QHS 30 Days #30 09/25/17 lisinopril 20 mg tablet 20 mg PO DAILY 30 Days #30 09/25/17 montelukast 10 mg tablet 10 mg PO QHS PRN 09/25/17 omeprazole 20 mg capsule,delayed release 20 mg PO QHS 30 Days #30 09/25/17 pravastatin 20 mg tablet 20 mg PO DAILY 30 Days #30 09/25/17 Bupropion HCl [Bupropion Xl] 150 mg PO DAILY 10/15/19 Levothyroxine [Synthroid] 50 mcg PO DAILY 10/15/19 Albuterol Sulfate [Albuterol Sulfate HFA] 2 puff IH Q4H PRN PRN 04/10/20 Fluticasone Propionate [Flovent Hfa] 2 puff IH BID 04/10/20 Polyethylene Glycol 3350 [Miralax] 17 gm PO DAILY packet 04/14/20 levoFLOXacin tablet [Levaquin tablet] 750 mg PO DAILY #3 tab 04/14/20 predniSONE tablet 10 mg PO DAILY@0800 #22 tab 04/14/20 The patient was counseled on the following discharge medications and changes in medications for homegoing were reviewed. The Reason for Use, instructions for use, and potential side effects were reviewed for all new medications. The patient's questions regarding all of their medications were answered. The patient was able to verbally demonstrate an understanding of their discharge medications.
[2020-04-14 12:16] LABS: Pathologist Comment/Body Fluid Reviewed
[2020-04-14 12:56] LABS: Pathologist Review Reviewed
[2020-04-14 19:14] LABS: ANTINUCLEAR ANTIBODIES DIRECT Negative (Negative)
[2020-04-14 20:07] LABS: Cytoplasmic Ab (C-ANCA) <1:20 titer (Neg:<1:20)
[2020-04-14 21:10] LABS: Perinuclear Ab (P-ANCA) <1:20 titer (Neg:<1:20)
[2020-04-15 11:03] LABS: CCP IgG Antibodies 4 units (0-19)
--- NOTE | 2020-04-15 17:40 | CASEMGMT ---
KAREL CM Discharge Follow-Up Phone Call. Lace: 10 Strata: 3 Discharge Date: 04/14/20 Adm Dx: Rt pneumonia with large Rt effusion. Attempted discharge f/u phone call. No answer and VM box is not set up yet, so unable to leave message for pt to return call. Oksana ARTEAGAN KAREL CM
== END 2020-04-14 11:20 | disposition home or self-care (01) | DRG 139 ==
LOC: ED 08:34 → PCU 12:45
PROVIDERS: Nurse Practitioner Family; Admitting Provider Internal Medicine; Emergency Provider Emergency Medicine; PCP Family Medicine; Visit Provider Internal Medicine
DX: J18.9 Pneumonia, unspecified organism (principal); J45.901 Unspecified asthma with (acute) exacerbation; J90 Pleural effusion, not elsewhere classified; Z23 Encounter for immunization; K21.9 Gastro-esophageal reflux disease without esophagitis; I10 Essential (primary) hypertension; E03.9 Hypothyroidism, unspecified; E78.5 Hyperlipidemia, unspecified; E66.01 Morbid (severe) obesity due to excess calories; F32.9 Major depressive disorder, single episode, unspecified; F41.9 Anxiety disorder, unspecified; Z68.43 Body mass index [BMI] 50.0-59.9, adult; M17.12 Unilateral primary osteoarthritis, left knee; J96.01 Acute respiratory failure with hypoxia; D64.9 Anemia, unspecified
CPT/HCPCS: 32555; 36415; 71045; 71046; 71275; 80048; 80076; 81001; 82945; 83605; 83615; 83735; 83880; 83986; 84156; 84157; 84484; 85025; 85027; 85379; 85610; 85730; 86038; 86200; 86225; 86235; 86256; 86431; 87040; 87070; 87075; 87205; 87449; 87633; 87635; 87641; 88108; 88305; 88313; 89050; 93005; 94640; 94667; 94668; 99251; 99285; J7030; J7050; J7120; Q9967; 90686; A4216; G0463; U0003

== ENCOUNTER 2020-04-17 11:03 | Emergency (ER) | payer MEDICAID, SELFPAY ==
[2020-04-10 13:02] VITALS: BMI 58.4
[2020-04-17 11:04] VITALS: BP 117/82; PULSE 125; RESP 19; TEMP 36; O2SAT 96; BMI 58.3
--- NOTE | 2020-04-17 11:33 | ED.DCSUM_ITS ---
- ER Visit Summary Date of Service: 04/17/20 Chief Complaint: Back pain History of Present Illness: The patient is a [address] Flores. Patient reports that she was recently admitted to the hospital and the bed was very uncomfortable. While she was trying to sleep her legs would go numb. States th at since being discharged and being up and more active she has low back pain. She describes it as an aching pain is 9-10 at worst and 6 out of 10 currently. Is worsened by walking and movement. Is relieved by rest. She denies any numbness or weakness. She reports that her legs feel heavy. There is no radiation of the pain to her legs. She denies any groin numbness. No problems with her bowels or her bladder. She denies any recent trauma. No fall or MVA. Patient reports that her cough is much improved. She is finishing her Levaquin today. She is still on prednisone. She denies any fever, chills, cough, shortness of breath, or other complaints. Physical Examination: Vitals: Stable. Afebrile. General: A&O x 3. NAD. Cardiovascular exam: Tachycardic regular rhythm, no murmur, rub or gallop. Respiratory exam: Clear to auscultation bilaterally. No wheezes or stridor. Abdominal exam: Soft, nontender, nondistended, normal bowel sounds. No peritoneal signs. Back: Moderate tenderness to palpation over the paraspinous musculature on the left. No vertebral tenderness. Negative straight leg bilaterally. 5/5 DF, PF, EHL bilaterally. Normal sensation to light touch throughout. Extremity: No clubbing, cyanosis, or edema. Emergency Department Course and Treatment: Had a prolonged discussion with the patient about further evaluation of her pneumonia. She reports that that seems like it is essentially gone and does not want this undertaken. She reports that her resting heart rate is usually 110?115. An [facility] report was obtained which was negative. She drove here and was given a dose of Tylenol. Treatment Plan: Patient will be discharged with 10 [place]. She is instructed on symptomatic care of her back pain. Instructed to follow-up with her primary care physician in 3 to 5 days if not improving. Return to the emergency department for any worsening symptoms. Disposition: To home in improved and stable condition. Impression: 1. Low back pain. This note was generated with [employer] dictation software. It may contain incorrect words, spelling, and punctuation that were not noted in review of the chart prior to signing ED Disposition - Plan for ED Patient: Instructions: ED Back Pain Acute or Chronic Prescriptions: Hydrocodone Bitart/Apap 5-325 [[place] 5MG-325MG] 1 tablet PO Q4H PRN PRN 2 Days #10 tablet PRN Reason: Pain Referrals: Luca Flores MD [Primary Care Provider] - 3-5 Days if not improving
[2020-04-17 11:39] VITALS: RESP 16
[2020-04-17] MEDS: Acetaminophen 325 MG Tablet 1000 MG PO (11:45)
== END 2020-04-17 11:47 | disposition home or self-care (01) ==
LOC: ED 11:37
PROVIDERS: Emergency Provider Emergency Medicine; PCP Family Medicine
DX: M54.5 Low back pain (principal); J45.909 Unspecified asthma, uncomplicated; I10 Essential (primary) hypertension
CPT/HCPCS: 99282; J7030; J3475

== ENCOUNTER 2020-04-17 21:15 | Emergency (ER) | payer MEDICAID, SELFPAY ==
[2020-04-17 11:04] VITALS: BMI 58.3
[2020-04-17 21:16] VITALS: BP 80/53; PULSE 57; RESP 16; TEMP 35.1; BMI 71.8
--- NOTE | 2020-04-17 21:22 | EKG12_ITS ---
Test Reason : CP Blood Pressure : / mmHG Vent. Rate : 047 BPM Atrial Rate : 042 BPM P-R Int : 000 ms QRS Dur : 126 ms QT Int : 542 ms P-R-T Axes : 000 -03 -61 degrees QTc Int : 479 ms Wide QRS rhythm Non-specific intra-ventricular conduction block Inferior infarct , possibly acute Abnormal ECG Possible electrolyte abnormality Junctional Rhythm Confirmed by MARK BROWN, RAJI ([id number]), social media editor MINDY MULLINS ([id number]) on 04/21/2020 9:58:47 AM Referred By: Confirmed By:RAJI FLORES MD
--- NOTE | 2020-04-17 21:35 | CM.ED ---
SOCIAL WORK Reason for Consult: Code Blue Responded to Code Patrick. No family present. Call to patient's Next of Kin/Mother, Sindhu. Updated on change in status and call facilitated to nursing. Mother attempting to find ride to hospital at this time. Will remain available for needs. Ken Garcia, SPA ASSISTANT MANAGER, [employer]
[2020-04-17 21:44] VITALS: BP 55/22; BP 80/53; BP 92/18; PULSE 0; PULSE 125; PULSE 56
--- NOTE | 2020-04-17 21:44 | ED.VIS.GEN ---
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 She was recently admitted for pneumonia. She was discharged on antibiotics. When patient arrived she was nonverbal. She was cyanotic and pale. Pupils were 3 to 4 mm in size. There was evidence of central cyanosis. Packerhead Machine Operator states she walked to the cost. She became unresponsive in route. Prior similar symptoms: No Recent Illness/Hospitalization: Yes - Past Medical History (1) Pneumonia involving right lung Status: Acute (2) Right moderate large pleural effusion Status: Acute (3) Anxiety and depression Status: Chronic (4) Dyslipidemia Status: Chronic (5) Hypertension Status: Chronic (6) Hypothyroidism Status: Chronic (7) Morbid obesity Status: Chronic Past Medical History - Allergies and Home Meds Allergies/Adverse Reactions: Allergies aspirin Allergy (Severe, Verified 04/17/20 11:04) Unknown Primary Care Physician: Luca Flores MD [Primary Care Provider] - Prior records reviewed: Yes Lives: With Family Smoking Status: Never smoker Drugs: - - Alcohol and drug history is unknown. - Family History Paternal Family History: Reports: COPD - Father history of COPD and smoking Review of Systems ROS: Unable to Obtain Physical Exam Vital Signs/Narrative: Vital Signs Temp Pulse Resp BP 04/17/20 21:16 95.1 F L 57 L 16 80/53 L Inital Vital Signs reviewed: Yes General: Well nourished, Well developed, Obese, Acute Distress, - - And appears ill, pale, with central cyanosis and is nonverbal. Head: Normocephalic, Atraumatic Eyes: Perrl. Negative for: Pale conjunctiva, Scleral icterus ENT: Moist mucous membranes, No rhinorrhea Neck: Supple, Nontender, No lymphadenopathy, - - He was midline. There is no stridor. There was minimal respiratory effort. Cardiovascular: Regular rhythm, Bradycardia Respiratory: No distress, Diminished Abdomen: Soft, Nondistended Rectal: Deferred Back: - - We will to roll patient for examination Extremities: Nontender Skin: No rash, Pallor, Trauma - Couple bruises noted to the lower extremity. Neurological: - - G CS 3 Diagnostic/Tx/Re-eval - Medical Decision Making Patient had a GCS of 3 appeared pale with minimal respiratory effort and hypoxia respiratory was called for. Airway box was called for. Since she did not have an IV placed prior to arrival a IO was placed right proximal humerus. Blood was aspirated from the IO. She received 20 mg etomidate. She was intubated first attempt with a 7.5 Vietnamese endotracheal tube. Observed endotracheal tube passing through the cords. Breath sounds noted bilaterally. She had diminished breath sounds bilaterally. There was appropriate color and the capnometer. Patient had loss of pulses. CPR was initiated. Ultrasound was performed and confirms cardiac contractions. Patient was treated for PEA. With recent history of pneumonia concern she has septic shock and is acidotic. She was treated with epinephrine, atropine since she was bradycardic and bicarb because of concern for acidosis. She also received fluids for treatment of hypovolemia. She received multiple rounds of epinephrine. Repeat transthoracic ultrasound revealed cardiac activity. After multiple rounds of epinephrine there was no Doppler flow and no cardiac activity noted. She was pronounced at 2141. Procedures Procedure(s): 1. In the context of right proximal humerus placed by pr. 2. Oral tracheal intubation using glide scope. 7.5 Vietnamese tube was placed with visualization of endotracheal tube through the vocal cords and appropriate color change on capnometer. 3. Treatment for PEA. 4. Defibrillation for ventricular fibrillation versus torsades. Patient did receive 2 A of magnesium for torsades. She also received 150 mg of amiodarone. 5. Transthoracic echo to determine cardiac activity which was noted on several fast scans during CPR. 6. Left antecubital peripheral line was established by nursing staff since the IO infiltrated at 8. ED Disposition - Plan for ED Patient: Disposition: Diagnosis: Hypotension, Shock, Cardiopulmonary arrest, Pulseless electrical activity, Torsades de pointes, Ventricular fibrillation Referrals: Luca Flores MD [Primary Care Provider] -
--- NOTE | 2020-04-17 22:26 | CM.ED ---
SOCIAL WORK Patient in ED. Patient's mother, father and brother arrived and updated by Dr. Plummer with this worker's presence. Much emotional support provided. Ken Garcia, LANDSCAPE ARTIST, ADVANCED MANAGER
--- NOTE | 2020-04-17 22:49 | ED.RN ---
CHECKED IN WITH FAMILY, NO NEEDS FROM STAFF AT THIS TIME. OFFERED BEVERAGE ETC, DECLINED.
== END 2020-04-17 23:59 ==
PROVIDERS: Emergency Provider Emergency Medicine; PCP Family Medicine
DX: I95.9 Hypotension, unspecified (principal); I46.9 Cardiac arrest, cause unspecified; I49.01 Ventricular fibrillation; M54.5 Low back pain; J45.909 Unspecified asthma, uncomplicated; I10 Essential (primary) hypertension; E66.01 Morbid (severe) obesity due to excess calories
CPT/HCPCS: 31500; 92950; 93005; 99281; 99282; J7030; J7050; A4216; J3475